=== PATIENT | male | born 1970 | race Hispanic/Latino ===

== ENCOUNTER 2023-09-01 20:18 | Emergency (ER) | payer BC ==
--- OUTSIDE RECORDS SUMMARY | 2023-09-01 20:21 | XMS REPORT | Continuity of Care Document ---
:1970 Author Organization [facility] t Address [address] [facility] [address] [place] [address] Care Team Providers Name Role Phone PCP, PATIENT DOES NOT HAVE A Primary Care Physician UnavailCLARA Hall Attending Clinician Unavailable DR ELSIE BRAVO Attending Clinician Unavailable KATHERINE FINLEY Attending Clinician Unavailable Katherine Finley MD Attending Clinician Doctor Unassigned, [place] Attending Clinician Unavailable Ford Attending Clinician Unavailable Herminio Attending Clinician Unavailable MARION RIVERA MD(DO NOT USE) Attending Clinician UnavailNANO Foreman Attending Clinician Unavailable AGUSTÍN VELÁZQUEZ Attending Clinician Unavailable SUE FAULKNER Attending Clinician Unavailable KAMARI DONOVAN Attending Clinician Unavailable EDER SUNSHINE Attending Clinician Unavailable DR ELSIE BRAVO Admitting Clinician Unavailable Ford Admitting Clinician Unavailable Herminio Admitting Clinician Unavailable Payers Payer Name Policy Type Policy Number Effective Date Expiration Date S eddy 0450 [id number] 1959 00:00:00 [facility] - [id number] 2021 00:00:00 OUT [id number] AETNA (POS) [id number] 2013 00:00:00 Problems Condition Condition Condition Status Onset Resolution Last Treating Co mments Source Name Details Category Date Date Treatment Clinician Date No known No known Disease Unive rs active active ity of problems problems [place] [facility] Allergies, Adverse Reactions, Alerts Allergy Allergy Status Severity Reaction(s) Onset Inactive Treating Comm ents Source Name Type Date Date Clinician Pen[place] DA Active Unknown [facility] ins 3-19 Medical 00:00: [place] 00 PENICILL DRUG Active High Hives 2021-11 Univers IN INGREDI 12-29 ity of 00:00: [place] 00 Medical Branch Penicill Propensi Active Hives 2021-11 Univer s in ty to 12-29 ity of adverse 00:00: [place] reaction 00 Medical s Branch NO KNOWN Drug Active Univers ALLERGIE Class ity of S [place] [facility] Social History Social Habit Start Date Stop Date Quantity Comments Source Exposure to 2022-10-19 2022-10-29 Not sure [facility] SARS-CoV-2 (event) 00:00:00 13:20:00 Medica l Branch Sex Assigned At [address] [facility] y of [place] 00:00:00 00:00:00 Medical Branch Smoking Status Start Date Stop Date Source Tobacco smoking consumption Univ [facility] Medical unknown Branch Medications Ordered Filled Start Stop Current Ordering Indication Dosage Frequency Signature Comments Components Source Medication Medication Date Date Medication? Clinician (SIG) Name Name triamcinolo 2021-11- No [id number] 20mg Univers ne 12-29 9107 ity of acetonide 22:00: 21:11 [place] (KENALOG) 00 :00 Medical injection Branch 20 mg triamcinolo 2021-11- No [id number] 20mg 20 mg, Univers ne 12-29 Intramuscu ity of acetonide 22:00: 21:11 [place]CE, [place] ([place] 00 :00 1 dose, On Medi jesus injection Wed Branch 20 mg 10/29/22 at 1600, Routine triamcinolo 2021-11- No [id number] 20mg Univers ne 12-29 9107 ity of acetonide 22:00: 21:11 [place] (KENALOG) 00 :00 Medical injection Branch 20 mg triamcinolo 2021-11- No [id number] 20mg 20 mg, Univers ne 12-29 9107 Intramuscu ity of acetonide 22:00: 21:11 [place]CE[place] (KE[place] 00 :00 1 dose, On Medi jesus injection Wed Branch 20 mg 10/29/22 at 1600, Routine triamcinolo 2021-11- No [id number] 20mg Univers ne 12-29 9107 ity of acetonide 22:00: 21:11 [place] (KENALOG) 00 :00 Medical injection Branch 20 mg triamcinolo 2021-11- No [id number] 20mg 20 mg, Univers ne 12-29 9107 Intramuscu ity of acetonide 22:00: 21:11 lar, ONCE, [place] (KE[place]LOG) 00 :00 1 dose, On Medi jesus injection Wed Branch 20 mg 10/29/22 at 1600, Routine triamcinolo 2021-11- No [id number] 20mg Univers ne 12-29 9107 ity of acetonide 22:00: 21:11 [place] (KENALOG) 00 :00 Medical injection Branch 20 mg triamcinolo 2021-11- No [id number] 20mg 20 mg, Univers ne 12-29 9107 Intramuscu ity of acetonide 22:00: 21:11 lar, ONCE, [place] (KE[place]LOG) 00 :00 1 dose, On Medi jesus injection Wed Branch 20 mg 10/29/22 at 1600, Routine triamcinolo 2021-11- No [id number] 20mg Univers ne 12-29 9107 ity of acetonide 22:00: 21:11 [place] (KENALOG) 00 :00 Medical injection Branch 20 mg triamcinolo 2021-11- No [id number] 20mg 20 mg, Univers ne 12-29 9107 Intramuscu ity of acetonide 22:00: 21:11 lar, ONCE, [place] (KE[place]LOG) 00 :00 1 dose, On Medi jesus injection Wed Branch 20 mg 10/29/22 at 1600, Routine Vital Signs Vital Name Observation Time Observation Value Comments Source Height 2023-02-15 14:56:00 165.1 CM Weight 2023-02-15 14:56:00 70.3 KG Systolic blood 2022-10-29 19:35:00 108 mm[Hg] Univer sity of pressure [facility] Diastolic blood 2022-10-29 19:35:00 69 mm[Hg] Unive rsity of pressure [facility] Heart rate 2022-10-29 19:35:00 92 /min [facility] Body temperature 2022-10-29 19:35:00 36.17 Sue Univ ersity of [facility] Body height 2022-10-29 19:35:00 167.6 cm [facility] Body weight 2022-10-29 19:35:00 67.087 kg [facility] BMI 2022-10-29 19:35:00 23.87 kg/m2 [facility] Procedures Procedure Date / Time Performed Performing Clinician [facility] e CONSENT/REFUSAL FOR 2022-10-29 19:21:41 Doctor Unassigned, No Un [facility] DIAGNOSIS AND Name [facility] Branch TREATMENT Encounters Start End Encounter Admission Attending Care Care Encounter Source Date/Time Date/Time Type Type Clinicians Facility Department ID 2023-07-25 2023-07-25 Emergency ER RACHAEL, [facility] [id number] [place] 19:51:00 22:00:00 CLARA -[id number] suresh [facility] 2023-02-15 2023-02-15 Outpatient E [facility] [id number] [facility] 14:40:00 16:24:00 ELSIE Wolfe [facility] 2022-12-24 2022-12-24 Outpatient R KRYSTYNA [facility] [id number] Univers 13:50:00 13:50:00 KATHERINE ferrer [facility] 2022-10-29 2022-10-29 Office Krystyna [facility] [id number] Univers 13:30:00 15:04:44 Visit Katherine DIAS [id number] ity of [facility] [id number] [facility] AT [id number] Md sunil MALCOLM [address] [place] [address] 2022-10-29 2022-10-29 Outpatient Dinorah FINLEY, [facility] [id number] Univers 13:30:00 15:04:44 KATHERINE ferrer [facility] 2022-10-29 2022-10-29 Orders Doctor KATHERINE [id number] Univers 00:00:00 00:00:00 Only Unassigned, DIANDRA [id number] ity [facility] [id number] [facility] [id number] [address] 2022-10-09 2022-10-09 Outpatient cMcPaulald MMG [facility] [id number] [place] 00:00:00 00:00:00 [facility] 2021-12-26 2021-12-26 Outpatient Shanika HUGO [facility] [id number] [place] 09:54:00 09:54:00 dquist da [facility] Program 2021-06-18 2021-06-18 Emergency ER NICOLE, [facility] [id number] [place] 03:11:00 06:42:00 MARION -[id number] Critical access hospital 2018-12-03 2018-12-03 Emergency ER OWO, TOKS [facility] [id number] [place] 12:18:00 13:34:00 -[id number] Critical access hospital 2018-04-06 2018-04-07 Emergency ER OWO, TOKS [facility] [id number] [place] 22:20:00 00:04:00 -[id number] Critical access hospital 2016-10-06 2016-10-06 Emergency ER BA, AGUSTÍN [facility] [id number] [place] 01:46:00 03:58:00 -[id number] Critical access hospital 2015-10-19 2015-10-19 Emergency ER SAEMI, [facility] [id number] [place] 16:28:00 19:01:00 SUE -[id number] Critical access hospital 2015-01-04 2015-01-04 Emergency ER DONOVAN, [facility] [id number] [place] 12:51:00 15:48:00 WAS -[id number] Critical access hospital 2014-12-13 2014-12-13 Emergency ER [facility], [facility] [id number] [place] 16:13:00 16:50:00 [facility] -[id number] Critical access hospital 2014-08-29 2014-08-29 Emergency ER [facility], [facility] [id number] [place] 18:15:00 18:46:00 [facility] -[id number] Critical access hospital Results This patient has no known results.
--- NOTE | 2023-09-01 21:42 | ER ---
Nurse's Notes [facility] Name: Emmanuel Adam Age: 53 yrs Sex: Male : 1970 Arrival Date: 09/01/2023 Time: 20:18 Bed 10 Private MD: Diagnosis: Contusion of right foot;Other sprain of right foot Presentation: 09/01 20:39 Chief complaint: Patient states: right foot pain of 8,onset 1 hours ago. Patient stated pf1 twisted right foot after stepping into a hole. Coronavirus screen: Vaccine status: Patient reports receiving the 2nd dose of the covid vaccine. 4 doses pfizer Client denies travel out of the [place] in the last 14 days. At this time, the client does not indicate any symptoms associated with coronavirus-19. Ebola Screen: Patient negative for fever greater than or equal to 101.5 degrees Fahrenheit, and additional compatible Ebola Virus Disease symptoms. Initial Sepsis Screen: Does the patient meet any 2 criteria? No. Patient's initial sepsis screen is negative. Does the patient have a suspected source of infection? No. Patient's initial sepsis screen is negative. Risk Assessment: Do you want to hurt yourself or someone else? Patient reports no desire to harm self or others. 20:39 Method Of Arrival: Wheelchair pf1 20:39 Acuity: KATY 4 pf1 Historical: - Allergies: 20:41 PENICILLINS; pf1 - PMHx: 20:41 None; pf1 - PSHx: 20:41 None; pf1 - Immunization history:: Adult Immunizations up to date, Last tetanus immunization: < 5 years ago Flu vaccine is not up to date. - Social history:: Smoking status: Patient denies any tobacco usage or history of. Patient/guardian denies using alcohol, street drugs. Screenin:45 [facility] ED Fall Risk Assessment (Adult) History of falling in the last 3 months, pf1 including since admission No falls in past 3 months (0 pts) Confusion or Disorientation No (0 pts) Intoxicated or Sedated No (0 pts) Impaired Gait Yes (1 pt) Mobility Assist Device Used No (0 pt) Altered Elimination No (0 pt) Score/Fall Risk Level 0 - 2 = Low Risk Oriented to surroundings, Maintained a safe environment, Educated pt \T\ family on fall prevention, incl call for assistance when getting out of bed, Assessed \T\ reinforced patient's understanding of fall precautions, Provided non-skid footwear, Hourly rounding (assess needs \T\ fall precautionary measures) done, Used ambulatory aids as needed (educated on \T\ assisted with), Used gait belt as appropriate. 20:45 Abuse screen: Denies threats or abuse. Nutritional screening: No deficits noted. pf1 Tuberculosis screening: No symptoms or risk factors identified. Assessment: 20:45 General: Appears in no apparent distress. comfortable, well groomed, well developed, pf1 Behavior is calm, cooperative, appropriate for age, quiet. 20:45 Pain: Complains of pain in right foot Pain currently is 8 out of 10 on a pain scale. pf1 Neuro: No deficits noted. Level of Consciousness is awake, alert, obeys commands, Oriented to person, place, time, situation. Cardiovascular: No deficits noted. Capillary refill < 3 seconds Patient's skin is warm and dry. Respiratory: No deficits noted. Airway is patent Respiratory effort is even, unlabored, Respiratory pattern is regular, symmetrical. GI: No deficits noted. No signs and/or symptoms were reported involving the gastrointestinal system. : No deficits noted. No signs and/or symptoms were reported regarding the genitourinary system. EENT: No deficits noted. No signs and/or symptoms were reported regarding the EENT system. Derm: No deficits noted. No signs and/or symptoms reported regarding the dermatologic system. Musculoskeletal: Reports pain in right foot. 21:45 Reassessment: Patient appears in no apparent distress at this time. Patient and/or pf1 family updated on plan of care and expected duration. Pain level reassessed. Patient is alert, oriented x 3, equal unlabored respirations, skin warm/dry/pink. Patient states symptoms have improved. Vital Signs: 20:39 BP 108 / 70; Pulse 89; Resp 16; Temp 98.2; Pulse Ox 98% on R/A; Weight 61.23 kg; Height pf1 5 ft. 6 in. ; Pain 8/10; 21:45 BP 110 / 69; Pulse 82; Resp 16; Pulse Ox 100% on R/A; Pain 5/10; pf1 20:39 Body Mass Index 21.79 (61.23 kg, 167.64 cm) pf1 20:39 Pain Scale: Adult pf1 21:45 Pain Scale: Adult pf1 ED Course: 20:22 Patient arrived in ED. [email or web address] 20:25 Debo Mcqueen MD is Attending Physician. sp3 20:41 Triage completed. pf1 20:45 Patient has correct armband on for positive identification. Bed in low position. Call pf1 light in reach. 20:45 Arm band placed on right wrist. pf1 21:41 Foot Right 3 View XRAY In Process Unspecified. EDMS 21:41 Roderick Guardado MD is Referral Physician. sp3 21:55 Crutch training done. Ortho shoe applied to right foot. pf1 21:55 Provided Education on: prescription. pf1 21:57 No provider procedures requiring assistance completed. Patient did not have IV access pf1 during this emergency room visit. Administered Medications: No medications were administered Medication: 21:59 VIS not applicable for this client. pf1 Outcome: 21:42 Discharge ordered by MD. sp3 21:59 Discharged to home ambulatory, with crutches, pf1 21:59 Condition: improved 21:59 Discharge instructions given to patient, Instructed on discharge instructions, follow up and referral plans. Demonstrated understanding of instructions, follow-up care, medications, Prescriptions given X 1, 21:59 Patient left the ED. pf1 Signatures: Dispatcher [employer] EDWI Debo Mcqueen MD MD sp3 Alessandra Velasquez [email or web address] Soila Luna, RN RN pf1
--- NOTE | 2023-09-01 21:42 | EDPHYS ---
Physician Documentation [facility] Name: Emmanuel Adam Age: 53 yrs Sex: Male : 1970 Arrival Date: 09/01/2023 Time: 20:18 Bed 10 Private MD: ED Physician Debo Mcqueen HPI: 09/01 20:56 This 53 yrs old Male presents to ER via Wheelchair with complaints of Foot sp3 Injury. 20:56 53-year-old male with no significant past medical history presents to the ED with right sp3 lateral foot pain that occurred secondary to trauma when he stepped in a hole while walking approximately 2 hours ago. No prior injury or surgical intervention to that foot in the past. He denies any other injury including to the ankle, proximal knee hip pelvis or any other joint. No medical etiology for the traumatic misfortune. He currently denies any other symptoms including headache, neck pain, chest pain, shortness of breath, back pain, other joint pain rash or any neurological symptoms at this time. Remainder of ROS is negative.. Historical: - Allergies: 20:41 PENICILLINS; pf1 - PMHx: 20:41 None; pf1 - PSHx: 20:41 None; pf1 - Immunization history:: Adult Immunizations up to date, Last tetanus immunization: < 5 years ago Flu vaccine is not up to date. - Social history:: Smoking status: Patient denies any tobacco usage or history of. Patient/guardian denies using alcohol, street drugs. ROS: 20:58 Constitutional: Negative for fever, chills, and weight loss, Eyes: Negative for injury, sp3 pain, redness, and discharge, ENT: Negative for injury, pain, and discharge, Neck: Negative for injury, pain, and swelling, Cardiovascular: Negative for chest pain, palpitations, and edema, Respiratory: Negative for shortness of breath, cough, wheezing, and pleuritic chest pain, Abdomen/GI: Negative for abdominal pain, nausea, vomiting, diarrhea, and constipation, Back: Negative for injury and pain, Skin: Negative for injury, rash, and discoloration, Neuro: Negative for headache, weakness, numbness, tingling, and seizure, Psych: Negative for depression, anxiety, suicide ideation, homicidal ideation, and hallucinations, Allergy/Immunology: Negative for hives, rash, and allergies, Endocrine: Negative for neck swelling, polydipsia, polyuria, polyphagia, and marked weight changes, Hematologic/Lymphatic: Negative for swollen nodes, abnormal bleeding, and unusual bruising, 20:58 All other systems are negative, Exam: 20:58 Constitutional: This is a well developed, well nourished patient who is awake, alert, sp3 and in no acute distress. Head/Face: Normocephalic, atraumatic. Eyes: Pupils equal round and reactive to light, extra-ocular motions intact. Lids and lashes normal. Conjunctiva and sclera are non-icteric and not injected. Cornea within normal limits. Periorbital areas with no swelling, redness, or edema. Neck: Trachea midline, no thyromegaly or masses palpated, and no cervical lymphadenopathy. Supple, full range of motion without nuchal rigidity, or vertebral point tenderness. No Meningismus. Chest/axilla: Normal chest wall appearance and motion. Nontender with no deformity. No lesions are appreciated. Cardiovascular: Regular rate and rhythm with a normal S1 and S2. No gallops, murmurs, or rubs. Normal PMI, no JVD. No pulse deficits. Respiratory: Lungs have equal breath sounds bilaterally, clear to auscultation and percussion. No rales, rhonchi or wheezes noted. No increased work of breathing, no retractions or nasal flaring. Abdomen/GI: Soft, non-tender, with normal bowel sounds. No distension or tympany. No guarding or rebound. No evidence of tenderness throughout. Back: No spinal tenderness. No costovertebral tenderness. Full range of motion. Skin: Warm, dry with normal turgor. Normal color with no rashes, no lesions, and no evidence of cellulitis. Neuro: Awake and alert, GCS 15, oriented to person, place, time, and situation. Cranial nerves II-XII grossly intact. Motor strength 5/5 in all extremities. Sensory grossly intact. Cerebellar exam normal. Normal gait. Psych: Awake, alert, with orientation to person, place and time. Behavior, mood, and affect are within normal limits. 20:58 Musculoskeletal/extremity: Lateral swelling and pain to the right foot distal to the ankle. Distal neurovascular exam is normal including cap refill.. Vital Signs: 20:39 BP 108 / 70; Pulse 89; Resp 16; Temp 98.2; Pulse Ox 98% on R/A; Weight 61.23 kg; Height pf1 5 ft. 6 in. ; Pain 8/10; 21:45 BP 110 / 69; Pulse 82; Resp 16; Pulse Ox 100% on R/A; Pain 5/10; pf1 20:39 Body Mass Index 21.79 (61.23 kg, 167.64 cm) pf1 20:39 Pain Scale: Adult pf1 21:45 Pain Scale: Adult pf1 MDM: 20:46 Patient medically screened. sp3 20:59 Data reviewed: vital signs, nurses notes, radiologic studies. ED course: . sp3 21:01 ED course: 53-year-old male with right foot injury. X-rays pending. Differential sp3 diagnosis includes contusion versus strain versus fracture. Disposition based on x-ray with likely discharge home. Follow-up with orthopedics. NSAIDs Rx as needed.. 21:40 ED course: Foot x-ray demonstrates no fracture on my read. We will discharge him home sp3 on boot and crutches for as needed partial weightbearing.. 09/01 20:50 Order name: Foot Right 3 View XRAY sp3 09/01 21:41 Order name: Crutch Training; Complete Time: 21:53 sp3 09/01 21:41 Order name: Misc. Order: ortho shoe - right foot; Complete Time: 21:53 sp3 Administered Medications: No medications were administered Disposition Summary: 09/01/23 21:42 Discharge Ordered Notes: Location: Home sp3 Condition: Stable sp3 Diagnosis - Contusion of right foot sp3 - Other sprain of right foot sp3 Followup: sp3 - With: Roderick Guardado MD - When: Upon discharge from the Emergency Department - Reason: Recheck today's complaints Discharge Instructions: - Discharge Summary Sheet sp3 - Foot Sprain sp3 Forms: - Medication Reconciliation Form sp3 - Thank You Letter sp3 - Antibiotic Education sp3 - Prescription Opioid Use sp3 - Patient Portal Instructions sp3 - Leadership Thank You Letter sp3 Prescriptions: - Diclofenac Sodium 75 mg Oral Tablet Sustained Release - take 1 tablet ORAL route 2 times per day; 30 tablet; Refills: 0, Product sp3 Selection Permitted Signatures: Dispatcher [employer] EDMS Debo Mcqueen MD MD sp3 Soila Luna, NAYELI RN pf1
--- NOTE | 2023-09-01 21:47 | RAD REPORT ---
EXAM DESCRIPTION: RAD - Foot Right 3 View - 09/01/2023 9:39 pm CLINICAL HISTORY: SMASH INJURY Twisting injury. COMPARISON: No comparisons FINDINGS: No acute fracture or dislocation is seen.
[2023-09-01 22:12] VITALS: TEMP 98.2
[2023-09-01 22:13] VITALS: BP 110/69; O2SAT 100
== END 2023-09-01 21:59 | disposition home or self-care (01) ==
LOC: ER 20:18
DX: S93.691A Other sprain of right foot, initial encounter (principal)
CPT/HCPCS: 99283

== ENCOUNTER 2023-10-08 06:07 | Emergency (ER) | payer BC ==
--- OUTSIDE RECORDS SUMMARY | 2023-10-08 06:10 | XMS REPORT | Continuity of Care Document ---
:[address] [facility] t Address [address] [facility] [address] [place] [address] Care Team Providers Name Role Phone PCP, PATIENT DOES NOT HAVE A Primary Care Physician UnavailCLARA Hall Attending Clinician Unavailable DR ELSIE BRAVO Attending Clinician Unavailable KATHERINE FINLEY Attending Clinician Unavailable Katherine Finley MD Attending Clinician Doctor Unassigned, [place] Attending Clinician Unavailable [place] Attending Clinician Unavailable [...] Effective Date Expiration Date S eddy 0450 [id number] 1959 00:00:00 [facility] - [id number] 2021 00:00:00 OUT [place] [id number] [place]ET[place] (POS) [id number] 2013 00:00:00 Problems Condition Condition Condition Status Onset Resolution Last Treating Co mments Source Name Details Category Date Date Treatment Clinician Date No known No known Disease Unive rs active active ity of problems problems [place] [facility] Allergies, Adverse Reactions, Alerts Allergy Allergy Status Severity Reaction(s) Onset Inactive Treating Comm ents Source Name Type Date Date Clinician Penic[place] DA Active Unknown [facility] ins 3-19 Medical 00:00: [place] 00 PENICILL DRUG Active High Hives 2021-11 Univers IN INGREDI 12-29 ity of 00:00: [place] 00 Medical Branch Penicill Propensi Active Hives 2021-11 Univer s in ty to 12-29 ity of adverse 00:00: [place] reaction 00 Medical s Branch NO KNOWN Drug Active Univers ALLERGIE Class ity of S [place] [facility] Social History Social Habit Start Date Stop Date Quantity Comments Source Exposure to 2022-10-19 2022-10-29 Not sure [facility] SARS-CoV-2 (event) 00:00:00 13:20:00 Medica l Branch Sex Assigned At [birth year] [facility] y of [place] 00:00:00 00:00:00 Medical Branch Smoking Status Start Date Stop Date Source Tobacco smoking consumption Univ [facility] Medical unknown Branch Medications Ordered Filled Start Stop Current Ordering Indication Dosage Frequency Signature Comments Components Source Medication Medication Date Date Medication? Clinician (SIG) Name Name triamcinolo 2021-11- No [id number] 20mg Univers ne 12-29 9107 ity of acetonide 22:00: 21:11 [place] (KENALOG) 00 :00 Medical injection Branch 20 mg triamcinolo 2021-11- No [id number] 20mg 20 mg, Univers ne 12-29 Intramuscu ity of acetonide 22:00: 21:11 [place] ONCE, [place] 00 :00 1 dose, On Medi jesus injection Wed Branch 20 mg 10/29/22 at 1600, Routine triamcinolo 2021-11- No [id number] 20mg Univers ne 12-29 9107 ity of acetonide 22:00: 21:11 [place] (KENALOG) 00 :00 Medical injection Branch 20 mg triamcinolo 2021-11- No [id number] 20mg 20 mg, Univers ne 12-29 9107 Intramuscu ity of acetonide 22:00: 21:11 [place]CE, [place] ([place] 00 :00 1 dose, On Medi jesus injection Wed Branch 20 mg 10/29/22 at 1600, Routine triamcinolo 2021-11- No [id number] 20mg Univers ne 12-29 9107 ity of acetonide 22:00: 21:11 [place] (KENALOG) 00 :00 Medical injection Branch 20 mg triamcinolo 2021-11- No [id number] 20mg 20 mg, Univers ne 12-29 9107 Intramuscu ity of acetonide 22:00: 21:11 lar, ONCE, [place] (KE[place]LOG) 00 :00 1 dose, On Medi jesus injection Wed Branch 20 mg 10/29/22 at 1600, Routine triamcinolo 2021-11- No [id number] 20mg Univers ne 12-29 9107 ity of acetonide 22:00: 21:11 [place] (KENALOG) 00 :00 Medical injection Branch 20 mg triamcinolo 2021-11- No [id number] 20mg 20 mg, Univers ne 12-29 9107 Intramuscu ity of acetonide 22:00: 21:11 lar, ONCE, [place] (KE[place]LOG) 00 :00 1 dose, On Medi jesus injection Wed Branch 20 mg 10/29/22 at 1600, Routine triamcinolo 2021-11- No [id number] 20mg Univers ne 12-29 9107 ity of acetonide 22:00: 21:11 [place] (KENALOG) 00 :00 Medical injection Branch 20 mg triamcinolo 2021-11- No [id number] 20mg 20 mg, Univers ne 12-29 9107 [...] 19:35:00 108 mm[Hg] Univer sity of pressure [facility] Diastolic blood 2022-10-29 19:35:00 69 mm[Hg] Unive rsity of pressure [facility] Heart rate 2022-10-29 19:35:00 92 /min [facility] Body temperature 2022-10-29 19:35:00 36.17 Sue Univ ersity of [facility] Body height 2022-10-29 19:35:00 167.6 cm [facility] Body weight 2022-10-29 19:35:00 67.087 kg [facility] BMI 2022-10-29 19:35:00 23.87 kg/m2 [facility] Procedures Procedure Date / Time Performed Performing Clinician [facility] e CONSENT/REFUSAL FOR 2022-10-29 19:21:41 Doctor Unassigned, No Un [facility] DIAGNOSIS AND Name [facility] Branch TREATMENT Encounters Start End Encounter Admission Attending Care Care Encounter Source Date/Time Date/Time Type Type Clinicians Facility Department ID 2023-07-25 2023-07-25 Emergency ER RACHAEL, [facility] [id number] [place] 19:51:00 22:00:00 CLARA -[id number] suresh [facility] 2023-02-15 2023-02-15 Outpatient E [facility] [id number] [place] 14:40:00 16:24:00 ELSIE Wolfe [facility] 2022-12-24 2022-12-24 Outpatient R KRYSTYNA [facility] [id number] Univers 13:50:00 13:50:00 KATHERINE ferrer [facility] 2022-10-29 2022-10-29 Office Krystyna [facility] [id number] Univers 13:30:00 15:04:44 Visit Katherine DIAS [id number] ity of [facility] [id number] [facility] AT [id number] Ia sunil MALCOLM [address] [place] [address] 2022-10-29 2022-10-29 Outpatient Dinorah FINLEY, [facility] [id number] Univers 13:30:00 15:04:44 KATHERINE ferrer [facility] 2022-10-29 2022-10-29 Orders Doctor KATHERINE [id number] Univers 00:00:00 00:00:00 Only Unassigned, DIANDRA [id number] ity [facility] [id number] [facility] [id number] [address] 2022-10-09 2022-10-09 Outpatient cMcPaulald [facility]G [facility] [id number] [place] 00:00:00 00:00:00 [id number] 2021-12-26 2021-12-26 Outpatient Shanika HUGO [facility] [id number] [place] 09:54:00 09:54:00 dquist da [facility] Program 2021-06-18 2021-06-18 Emergency ER NICOLE, [facility] [id number] [place] 03:11:00 06:42:00 MARION -[id number] [facility] 2018-12-03 2018-12-03 Emergency ER OWO, TOKS [facility] [id number] [place] 12:18:00 13:34:00 -[id number] [facility] 2018-04-06 2018-04-07 Emergency ER OWO, TOKS [facility] [id number] [place] 22:20:00 00:04:00 -[id number] [facility] 2016-10-06 2016-10-06 Emergency ER BA, AGUSTÍN [facility] [id number] [place] 01:46:00 03:58:00 -[id number] [facility] 2015-10-19 2015-10-19 Emergency ER SAEMI, [facility] [id number] [place] 16:28:00 19:01:00 SUE -[id number] [facility] 2015-01-04 2015-01-04 Emergency ER DONOVAN, [facility] [id number] [place] 12:51:00 15:48:00 WAS -[id number] [facility] 2014-12-13 2014-12-[address] [facility], [facility] [id number] [place] 16:13:00 16:50:00 [facility] -[id number] [facility] 2014-08-29 2014-08-[address] [facility], [facility] [id number] [place] 18:15:00 18:46:00 [facility] -[id number] [facility] Results This patient has no known results.
--- NOTE | 2023-10-08 06:59 | EDPHYS ---
Physician Documentation [facility] Name: Emmanuel Adam Age: 53 yrs Sex: Male : 1970 Arrival Date: 10/08/2023 Time: 06:07 Bed 13 Private MD: ALEJANDRO Physician Ion Hill HPI: 10/08 06:51 This 53 yrs old Male presents to ER via Ambulatory with complaints of THROAT basilio PAIN. 06:51 The patient presents with sore throat. The patient describes throat pain as constant. basilio Onset: The symptoms/episode began/occurred 2 day(s) ago. Severity of symptoms: At their worst the symptoms were mild, in the emergency department the symptoms are unchanged. Modifying factors: The symptoms are alleviated by nothing, the symptoms are aggravated by nothing. Associated signs and symptoms: The patient has no apparent associated signs or symptoms. The patient has experienced similar episodes in the past, a few times. Historical: - Allergies: 06:37 PENICILLINS; as6 - PMHx: 06:37 None; as6 - PSHx: 06:37 None; as6 - Immunization history:: Adult Immunizations up to date. - Social history:: Smoking status: Patient denies any tobacco usage or history of. ROS: 06:54 Constitutional: Negative for fever, chills, and weight loss, Eyes: Negative for injury, basilio pain, redness, and discharge, Neck: Negative for injury, pain, and swelling, Cardiovascular: Negative for chest pain, palpitations, and edema, Respiratory: Negative for shortness of breath, cough, wheezing, and pleuritic chest pain, Abdomen/GI: Negative for abdominal pain, nausea, vomiting, diarrhea, and constipation, Back: Negative for injury and pain, : Negative for injury, bleeding, discharge, and swelling, MS/Extremity: Negative for injury and deformity, Skin: Negative for injury, rash, and discoloration, Neuro: Negative for headache, weakness, numbness, tingling, and seizure, Psych: Negative for depression, anxiety, suicide ideation, homicidal ideation, and hallucinations, Allergy/Immunology: Negative for hives, rash, and allergies, Endocrine: Negative for neck swelling, polydipsia, polyuria, polyphagia, and marked weight changes, Hematologic/Lymphatic: Negative for swollen nodes, abnormal bleeding, and unusual bruising, 06:54 ENT: Positive for sore throat, Exam: 06:54 Constitutional: This is a well developed, well nourished patient who is awake, alert, basilio and in no acute distress. Head/Face: Normocephalic, atraumatic. Eyes: Pupils equal round and reactive to light, extra-ocular motions intact. Lids and lashes normal. Conjunctiva and sclera are non-icteric and not injected. Cornea within normal limits. Periorbital areas with no swelling, redness, or edema. Neck: Trachea midline, no thyromegaly or masses palpated, and no cervical lymphadenopathy. Supple, full range of motion without nuchal rigidity, or vertebral point tenderness. No Meningismus. Chest/axilla: Normal chest wall appearance and motion. Nontender with no deformity. No lesions are appreciated. Cardiovascular: Regular rate and rhythm with a normal S1 and S2. No gallops, murmurs, or rubs. Normal PMI, no JVD. No pulse deficits. Respiratory: Lungs have equal breath sounds bilaterally, clear to auscultation and percussion. No rales, rhonchi or wheezes noted. No increased work of breathing, no retractions or nasal flaring. Abdomen/GI: Soft, non-tender, with normal bowel sounds. No distension or tympany. No guarding or rebound. No evidence of tenderness throughout. Back: No spinal tenderness. No costovertebral tenderness. Full range of motion. Male : Normal genitalia with no discharge or lesions. Skin: Warm, dry with normal turgor. Normal color with no rashes, no lesions, and no evidence of cellulitis. MS/ Extremity: Pulses equal, no cyanosis. Neurovascular intact. Full, normal range of motion. Neuro: Awake and alert, GCS 15, oriented to person, place, time, and situation. Cranial nerves II-XII grossly intact. Motor strength 5/5 in all extremities. Sensory grossly intact. Cerebellar exam normal. Normal gait. Psych: Awake, alert, with orientation to person, place and time. Behavior, mood, and affect are within normal limits. 06:54 ENT: Posterior pharynx: Tonsils: bilaterally enlarged, with erythema, Uvula: normal, midline, non-edematous, erythema, swelling, that is mild, erythema, that is mild, exudate, is not appreciated, peritonsillar mass, is not appreciated, pooling of secretions, is not appreciated, Vital Signs: 06:31 BP 129 / 87; Pulse 109; Resp 18 S; Temp 98.8(O); Pulse Ox 100% on R/A; Weight 58.97 kg as6 (R); Height 5 ft. 6 in. (R); Pain 10/10; 06:31 Body Mass Index 20.98 (58.97 kg, 167.64 cm) as6 06:31 Pain Scale: Adult as6 MDM: 06:33 Patient medically screened. basilio 06:55 Differential diagnosis: Allergic rhinitis, echovirus infection, epiglottitis, basilio gingivostomatitis, group A strep tonsillitis, influenza, laryngitis, lymphoma, peritonsillar abscess pharyngitis. Data reviewed: vital signs, nurses notes. Consideration of Admission/Observation Escalation of care including admission/observation considered. I considered the following discharge prescriptions or medication management in the emergency department Medications were administered in the Emergency Department. See MAR. Test considered but Not performed: Labs: no labs. Care significantly affected by the following chronic conditions: none, non smoker. Counseling: I had a detailed discussion with the patient and/or guardian regarding the historical points, exam findings, and any diagnostic results supporting the discharge/admit diagnosis, the need for outpatient follow up, for definitive care, an ENT specialist, a family practitioner. 10/08 06:50 Order name: PO challenge; Complete Time: 06:54 basilio Administered Medications: 06:54 Drug: AZITHromycin PO 500 mg PO once Route: PO; jb4 08:00 Follow up: Response: No adverse reaction iw Disposition Summary: 10/08/23 06:58 Discharge Ordered Notes: Location: Home basilio Problem: new basilio Symptoms: have improved basilio Condition: Stable basilio Diagnosis - Gastro-esophageal reflux disease with esophagitis basilio - Acute pharyngitis, unspecified basilio Followup: basilio - With: Private Physician - When: 2 - 3 days - Reason: Recheck today's complaints, Continuance of care, Re-evaluation by your physician Followup: basilio - With: Carmella Shaver MD - When: 2 - 3 days - Reason: Recheck today's complaints, Continuance of care, Re-evaluation by your physician Discharge Instructions: - Discharge Summary Sheet basilio - Esophagitis basilio - Gastroesophageal Reflux Disease, Adult basilio - Pharyngitis basilio - Sore Throat basilio - Pharyngitis, [id number] [facility] Forms: - Medication Reconciliation Form [facility] - Thank You Letter basilio - Antibiotic Education basilio - Prescription Opioid Use basilio - Patient Portal Instructions [facility] - Leadership Thank You Letter basilio Prescriptions: - Protonix 40 mg Oral Tablet - take 1 tablet ORAL route once daily; 30 tablet; Refills: 0, Product Selection [facility] Permitted - Jessy-D 12 Hour 60-120 mg Oral Tablet Sustained Release 12 hr - take 1 tablet ORAL route every 12 hours As needed; 20 tablet; Refills: 0, [facility] Product Selection Permitted - Zithromax 500 mg Oral Tablet - take 1 tablet ORAL route once daily for 5 days; 5 tablet; Refills: 0, Product [facility] Selection Permitted Signatures: Ion Hill MD MD cha Bryson, James RN RN jb4 Sanya Norman RN RN as6 Maddy Murphy RN iw
--- NOTE | 2023-10-08 06:59 | ER ---
Nurse's Notes [facility] Name: Emmanuel Adam Age: 53 yrs Sex: Male : 1970 Arrival Date: 10/08/2023 Time: 06:07 Bed 13 Private MD: Diagnosis: Gastro-esophageal reflux disease with esophagitis;Acute pharyngitis, unspecified Presentation: 10/08 06:38 Chief complaint: Patient states: "for the past week and a half my throat has been as6 really sore and it hurts to swallow and eat food". Coronavirus screen: At this time, the client does not indicate any symptoms associated with coronavirus-19. Ebola Screen: No symptoms or risks identified at this time. Initial Sepsis Screen: Does the patient meet any 2 criteria? No. Patient's initial sepsis screen is negative. Does the patient have a suspected source of infection? No. Patient's initial sepsis screen is negative. Risk Assessment: Do you want to hurt yourself or someone else? Patient reports no desire to harm self or others. Onset of symptoms was September 28, 2023. 06:38 Acuity: KATY 3 as6 06:38 Method Of Arrival: Ambulatory as6 Historical: - Allergies: 06:37 PENICILLINS; as6 - PMHx: 06:37 None; as6 - PSHx: 06:37 None; as6 - Immunization history:: Adult Immunizations up to date. - Social history:: Smoking status: Patient denies any tobacco usage or history of. Screenin:56 [facility] ED Fall Risk Assessment (Adult) History of falling in the last 3 months, jb4 including since admission No falls in past 3 months (0 pts) Confusion or Disorientation No (0 pts) Score/Fall Risk Level 0 - 2 = Low Risk Oriented to surroundings, Maintained a safe environment. Abuse screen: Denies threats or abuse. Nutritional screening: No deficits noted. Tuberculosis screening: No symptoms or risk factors identified. Assessment: 06:54 General: Appears in no apparent distress. uncomfortable, Behavior is calm, cooperative, jb4 appropriate for age. Pain: Complains of pain in throat Pain does not radiate. Pain currently is 10 out of 10 on a pain scale. Quality of pain is described as scraping. Neuro: Level of Consciousness is awake, alert, obeys commands, Oriented to person, place, time, situation. Cardiovascular: Patient's skin is warm and dry. Respiratory: Airway is patent Respiratory effort is even, unlabored, Respiratory pattern is regular, symmetrical. GI: No signs and/or symptoms were reported involving the gastrointestinal system. : No signs and/or symptoms were reported regarding the genitourinary system. EENT: Throat is clear is reddened with gag reflex present. Derm: Skin is intact, Skin is pink, warm \\T\\ dry. Musculoskeletal: Circulation, motion, and sensation intact. Range of motion: intact in all extremities. Vital Signs: 06:31 BP 129 / 87; Pulse 109; Resp 18 S; Temp 98.8(O); Pulse Ox 100% on R/A; Weight 58.97 kg as6 (R); Height 5 ft. 6 in. (R); Pain 10/10; 06:31 Body Mass Index 20.98 (58.97 kg, 167.64 cm) as6 06:31 Pain Scale: Adult as6 ED Course: 06:09 Patient arrived in ED. ag3 06:31 Arm band placed on. as6 06:33 Ion Hill MD is Attending Physician. basilio 06:41 Triage completed. as6 06:56 Patient has correct armband on for positive identification. Bed in low position. Call jb4 light in reach. Side rails up X 1. 06:57 Carmella Shaver MD is Referral Physician. basilio 07:28 Maddy Murphy, RN is Primary Nurse. iw 07:28 No provider procedures requiring assistance completed. Patient did not have IV access iw during this emergency room visit. Administered Medications: 06:54 Drug: AZITHromycin PO 500 mg PO once Route: PO; jb4 08:00 Follow up: Response: No adverse reaction iw Medication: 07:28 VIS not applicable for this client. iw Outcome: 06:58 Discharge ordered by . basilio 07:28 Discharged to home ambulatory, iw 07:28 Condition: good 07:28 Discharge instructions given to patient, Instructed on discharge instructions, follow up and referral plans. medication usage, Demonstrated understanding of instructions, follow-up care, medications, Prescriptions given X 3, 07:29 Patient left the ED. iw Signatures: Ion Hill MD MD cha Williams, Irene, RN RN Reymundo Grande RN RN 4 Willow White ag3 Sanya Norman, RN RN as6
[2023-10-08] MEDS ORDERED: AZITHROMYCIN 250 MG TAB ONE (07:05)
[2023-10-08 07:44] VITALS: BP 129/87; TEMP 98.8; O2SAT 100
== END 2023-10-08 07:29 | disposition home or self-care (01) ==
LOC: ER 06:07
DX: K21.00 Gastro-esophageal reflux disease with esophagitis, without bleeding (principal); Z88.0 Allergy status to penicillin
CPT/HCPCS: 99283

== ENCOUNTER 2023-11-06 07:24 | Day surgery (SDC) | payer BC ==
[2023-11-04 14:38] LABS: Potassium 4.6 mEq/L (3.5-5.1)
[2023-11-06] MEDS ORDERED: Ringers Lactate 1,000 ML IV ONE (07:55)
[2023-11-06 19:39] VITALS: O2SAT 100
[2023-11-06 19:46] VITALS: BP 105/70; TEMP 97.9
--- NOTE | 2023-11-10 14:07 | EKG ---
Test Date: 2023-11-04 Test Time: 15:05:54 Cost Control Supervisor: EL MEASUREMENT RESULTS: Intervals: Rate: 87 TN: 162 QRSD: 86 QT: 336 QTc: 404 [place]: P: 39 TN: 162 QRS: 100 T: 49 INTERPRETIVE STATEMENTS: Normal sinus rhythm Rightward axis Borderline ECG No previous ECG available for comparison Electronically Signed On 11-10-23 13:47:27 [employer] by Ryan Veliz
== END 2023-11-06 12:28 | disposition home or self-care (01) ==
LOC: OR 07:24
PROVIDERS: ATTEND Surgery
PROC: 0DB48ZX Excision of Esophagogastric Junction, Via Natural or Artificial Opening Endoscopic, Diagnostic (ICD-10-PCS; 2023-11-06)
PROC: 0DB18ZX Excision of Upper Esophagus, Via Natural or Artificial Opening Endoscopic, Diagnostic (ICD-10-PCS; 2023-11-06)
PROC: 0DB28ZX Excision of Middle Esophagus, Via Natural or Artificial Opening Endoscopic, Diagnostic (ICD-10-PCS; 2023-11-06)
PROC: 0DB38ZX Excision of Lower Esophagus, Via Natural or Artificial Opening Endoscopic, Diagnostic (ICD-10-PCS; 2023-11-06)
PROC: 0DBH8ZX Excision of Cecum, Via Natural or Artificial Opening Endoscopic, Diagnostic (ICD-10-PCS; principal; 2023-11-06 09:30)
PROC: 0DBN8ZX Excision of Sigmoid Colon, Via Natural or Artificial Opening Endoscopic, Diagnostic (ICD-10-PCS; 2023-11-06 09:30)
DX: R47.02 Dysphasia (principal); Z12.11 Encounter for screening for malignant neoplasm of colon; K21.9 Gastro-esophageal reflux disease without esophagitis; N42.9 Disorder of prostate, unspecified; K51.30 Ulcerative (chronic) rectosigmoiditis without complications; K51.50 Left sided colitis without complications; K29.50 Unspecified chronic gastritis without bleeding; B37.81 Candidal esophagitis; K63.0 Abscess of intestine; Z86.16 Personal history of COVID-19
CPT/HCPCS: 93005; 80048; 36415; 88312 ×2; 88305; 45380; 43239; J7120

== ENCOUNTER 2024-10-02 20:50 | Emergency (ER) | payer BC ==
--- OUTSIDE RECORDS SUMMARY | 2024-10-02 20:53 | XMS REPORT | Continuity of Care Document ---
Author Name Unknown Address [address] [place] [address] [facility] Address [address] [place] [address] Care Team Providers Care Jig Hand Name Role Phone PCP, PATIENT DOES NOT HAVE A Primary Care Physic florence Unavailable CLARA CANO Attending Clinician Unavailable DR ELSIE BRAVO Attending Clinician Unavailab KATHERINE Lundberg Attending Clinician Unavailable Katherine Greenwood MD Attending Clinician [phone] Doctor Unassigned, [place] Attending Clinician U navailable Ford Attending Clinician Unavailable Herminio Attending Clinician Unavailabl MARION Ramon MD(DO NOT USE) Attending Clinic florence Unavailable NANO PEREZ Attending Clinician Unavailable AGUSTÍN VELÁZQUEZ Attending Clinician Unavailable SUE FAULKNER Attending Clinician Unavailable KAMARI DONOVAN Attending Clinician Unavailable EDER SUNSHINE Attending Clinician Unavailab DR ELSIE Lopez Admitting Clinician Unavailab josue Youngblood Admitting Clinician Unavailable Herminio Admitting Clinician Unavailtorey torres Payers Payer Name Policy Type Policy Number Effective Date Expirati on Date Source [id number] [id number] 1959 00:00:00 [place] [id number] 2021 00:00:00 [place] [id number] AETNA (POS) [id number] 2013 00:00:00 Problems Condition Name Condition Details Condition Category Status Onset Date Resolution Date Last Treatment Date Treating Clinician Comments Source No known active problems No known active problems Disease [facility] Allergies, Adverse Reactions, Alerts Allergy Name Allergy Type Status Severity Reaction(s) Onset Date Inactive Date Treating Clinician Comments Source Penicill ins DA Active Unknown 02-15 00:00: 00 [facility] PENICILL IN DRUG INGREDI Active High Hives 2021-11 00:00: 00 [facility] Penicill in Propensi ty to adverse reaction s Active Hives 2021-11 00:00: 00 [facility] NO KNOWN ALLERGIE S Drug Class Active [facility] Social History Social Habit Start Date Stop Date Quantity Comments Source Exposure to SARS-CoV-2 (event) 2022-10-19 00:00:00 2022-10-29 13:20:00 Not sure [facility] Sex Assigned At 1970 00:00:00 1970 00:00:00 [facility] Smoking Status Start Date Stop Date Source Tobacco smoking consumption unknown [facility] Medications Ordered Medication Name Filled Medication Name Start Date Stop Date Current Medication? Ordering Clinician Indication Dosage Frequency Signature (SIG) Comments Components Source triamcinolo ne acetonide (KENALOG) injection 20 mg 2021-11 22:00: 00 10-29 21:11 :00 No [id number] 20mg [facility] Vital Signs Vital Name Observation Time Observation Value Comments S thaliapalomo Height 2023-02-15 14:56:00 165.1 CM Weight 2023-02-15 14:56:00 70.3 KG Systolic blood pressure 2022-10-29 19:35:00 108 mm[Hg] Seymour o [facility] Diastolic blood pressure 2022-10-29 19:35:00 69 mm[Hg] Seymour o f [facility] Heart rate 2022-10-29 19:35:00 92 /min [facility] Body temperature 2022-10-29 19:35:00 36.17 Sue [facility] Body height 2022-10-29 19:35:00 167.6 cm [facility] Body weight 2022-10-29 19:35:00 67.087 kg [facility] BMI 2022-10-29 19:35:00 23.87 kg/m2 [facility] Procedures Procedure Date / Time Performed Performing Clinicia n Source CONSENT/REFUSAL FOR DIAGNOSIS AND TREATMENT 2022-10-29 19:21:41 Doctor Unassigned, [place] [facility] Encounters Start Date/Time End Date/Time Encounter Type Admission Type Attending Clinicians Care Facility Care Department Encounter ID Source 2023-07-25 19:51:00 2023-07-25 22:00:00 Emergency ER CLARA CANO [facility] [id number] [facility] 2023-02-15 14:40:00 2023-02-15 16:24:00 Outpatient ELSIE RUSSO [facility] [id number] [facility] 2022-12-24 13:50:00 2022-12-24 13:50:00 Outpatient KATHERINE AUSTIN [facility] [id number] [facility] 2022-10-29 13:30:00 2022-10-29 15:04:44 Office Visit Katherine Greenwood [facility] [id number] [facility] 2022-10-29 13:30:00 2022-10-29 15:04:44 Outpatient KATHERINE AUSTIN [facility] [id number] [facility] 2022-10-29 00:00:00 2022-10-29 00:00:00 Orders Only Doctor Unassigned, [place] [facility] [id number] [facility] 2022-10-09 00:00:00 2022-10-09 00:00:00 Outpatient Ford GOMEZ [facility] [id number] [facility] 2021-12-26 09:54:00 2021-12-26 09:54:00 [facility] [id number] [facility] 2021-06-18 03:11:00 2021-06-18 06:42:00 Emergency ER NICOLE MARION [facility] [id number] [facility] 2018-12-03 12:18:00 2018-12-03 13:34:00 Emergency ER OWO, TOKS [facility] [id number] [facility] 2018-04-06 22:20:00 2018-04-07 00:04:00 Emergency ER OWO, TOKS [facility] [id number] [facility] 2016-10-06 01:46:00 2016-10-06 03:58:00 Emergency ER AGUSTÍN VELÁZQUEZ [facility] [id number] [facility] 2015-10-19 16:28:00 2015-10-19 19:01:00 Emergency ER DONTRELL FAULKNERLEA [facility] [id number] [facility] 2015-01-04 12:51:00 2015-01-04 15:48:00 Emergency ER KAMARI DONOVAN [facility] [id number] [facility] 2014-12-13 16:13:00 2014-12-13 16:50:00 Emergency ER EDER SUNSHINE [facility] [id number] [facility] 2014-08-29 18:15:00 2014-08-29 18:46:00 Emergency ER UGORJI, CLEMENT [facility] [id number] [facility]
[2024-10-02] MEDS ORDERED: IBUPROFEN 400 MG TAB ONE (21:52)
[2024-10-02] MEDS ORDERED: FLUCONAZOLE 100 MG TAB ONE (21:52)
[2024-10-02] MEDS ORDERED: CODEINE 30MG/APAP 300MG TAB ONE (21:52)
[2024-10-02 22:00] LABS: Albumin 2.7 g/dL (3.4-5.0); Albumin/Globulin Ratio 0.6 (1.1-1.8); Anion Gap 6.8 mEq/L (5.0-15.0); Bilirubin Total 0.3 mg/dL (0.2-1.0); Globulin 4.6 g/dL (2.3-3.5); Potassium 3.8 mEq/L (3.5-5.1); Protein, Total 7.3 g/dL (6.4-8.2)
[2024-10-02 22:22] LABS: Absolute Eosinophils 0.4 K/uL (0-0.5); Absolute Lymphocytes (CBC) 1.2 K/uL (0.7-4.9); Absolute Monocytes 0.8 K/uL (0.1-1.3); Absolute Neutrophil 2.1 K/uL (1.8-8.0); Basophils % 0.6 % (0-1.3); Eosinophils % 8.5 % (0-4.4); Hematocrit 32.1 % (39.6-49.0); Hemoglobin 11.1 g/dL (13.6-17.9); Lymphocytes % 26.4 % (15.3-44.8); MCH 29.7 pg (27.0-35.0); MCHC 34.6 g/dL (32.0-36.0); MCV 85.8 fL (80-100); MPV 7.1 fL (7.6-11.3); Neutrophils % 46.5 % (41.7-73.7); Nucleated Red Blood Cells % 0.2 % (0-0); Platelets 222 thou/uL (152-406); RBC Red Blood Cell Count 3.75 M/uL (4.33-5.43); Red Cell Distribution Width 14.3 % (12.1-15.2)
[2024-10-02 23:17] LABS: Band Neutrophils 29 % (0-1); Differential Total Cells Count 100; Eosinophils 8 % (0-3); Lymphocytes 23 % (15-42); Monocytes 13 % (0-10); Reactive Lymphocytes 4 %; Segmented Neutrophils 23 % (40-80)
[2024-10-02 23:18] LABS: Blood Morphology Comment NOT SEEN (NOT SEEN); Platelet Estimate ADEQ
--- NOTE | 2024-10-02 23:22 | ER ---
Nurse's Notes [facility] Name: Emmanuel Adam Age: 54 yrs Sex: Male : 1970 Arrival Date: 10/02/2024 Time: 20:50 Bed 5 Private MD: Diagnosis: Candidal stomatitis;Acute Wen esophagitis, acute Wen pharyngitis, HIV disease, AIDS acquired immunodeficiency syndrome Presentation: 10/02 21:00 Chief complaint: Patient states: n/v/d, sore throat and difficulty swallowing for a few me1 days. Coronavirus screen: Vaccine status: Patient reports receiving the 2nd dose of the covid vaccine. Ebola Screen: No symptoms or risks identified at this time. Initial Sepsis Screen: Does the patient meet any 2 criteria? No. Patient's initial sepsis screen is negative. Initial Sepsis Screen: Does the patient meet any 2 criteria? HR > 90 bpm. Risk Assessment: Do you want to hurt yourself or someone else? Patient reports no desire to harm self or others. Onset of symptoms was September 30, 2024. 21:00 Method Of Arrival: Ambulatory sc1 21:00 Acuity: KATY 3 me1 21:57 Initial Sepsis Screen: Does the patient have a suspected source of infection? No. al5 Patient's initial sepsis screen is negative. Historical: - Allergies: 21:01 PENICILLINS; me1 - PSHx: 21:01 dilation of esophagus; me1 - Immunization history:: Adult Immunizations up to date. - Infectious Disease History:: Denies. - Social history:: Smoking status: Patient denies any tobacco usage or history of. - Family history:: not pertinent. Screenin:38 [facility] ED Fall Risk Assessment (Adult) History of falling in the last 3 months, al5 including since admission No falls in past 3 months (0 pts) Confusion or Disorientation No (0 pts) Intoxicated or Sedated No (0 pts) Impaired Gait No (0 pts) Mobility Assist Device Used No (0 pt) Altered Elimination No (0 pt) Score/Fall Risk Level 0 - 2 = Low Risk Oriented to surroundings, Maintained a safe environment, Hourly rounding (assess needs \T\ fall precautionary measures) done. Abuse screen: Denies threats or abuse. Denies injuries from another. Nutritional screening: No deficits noted. Tuberculosis screening: No symptoms or risk factors identified. Assessment: 21:35 General: Appears in no apparent distress. uncomfortable, Behavior is calm, cooperative. al5 Pain: Denies pain. Neuro: Level of Consciousness is awake, alert, obeys commands, Oriented to person, place, time, situation. Cardiovascular: Capillary refill < 3 seconds Patient's skin is warm and dry. Respiratory: Airway is patent Respiratory effort is even, unlabored, Respiratory pattern is regular, symmetrical, Breath sounds are clear. GI: Abdomen is flat, non-distended. : No signs and/or symptoms were reported regarding the genitourinary system. EENT: Throat is reddened has patchy exudate bilaterally. Derm: Skin is intact, Skin is normal. Musculoskeletal: No signs and/or symptoms reported regarding the musculoskeletal system. 22:47 Reassessment: Patient appears in no apparent distress at this time. Patient and/or al5 family updated on plan of care and expected duration. Pain level reassessed. Patient is alert, oriented x 3, equal unlabored respirations, skin warm/dry/pink. Patient states feeling better. Vital Signs: 21:00 BP 106 / 86; Pulse 94; Resp 16; Temp 100.3; Pulse Ox 100% ; Weight 54.43 kg; Height 5 me1 ft. 6 in. ; Pain 3/10; 21:00 BP 103 / 72; Pulse 90; Resp 15; Pulse Ox 96% ; al5 21:15 BP 105 / 74; Pulse 96; Resp 16; Pulse Ox 100% on R/A; al5 21:30 BP 101 / 69; Pulse 92; Resp 14; Pulse Ox 97% on R/A; al5 22:00 BP 100 / 72; Pulse 85; Resp 15; Pulse Ox 97% on R/A; al5 22:30 BP 93 / 63; Pulse 79; Resp 16; Pulse Ox 95% on R/A; al5 23:58 BP 97 / 61; Pulse 75; Resp 15 S; Temp 98.7; Pulse Ox 99% on R/A; Pain 0/10; mt4 21:00 Body Mass Index 19.37 (54.43 kg, 167.64 cm) me1 21:00 Pain Scale: Adult me1 23:58 Pain Scale: Adult mt4 [place] Coma Score: 23:58 Eye Response: spontaneous(4). Motor Response: obeys commands(6). Verbal Response: mt4 oriented(5). Total: 15. 10/03 20:16 Eye Response: spontaneous(4). Motor Response: obeys commands(6). Verbal Response: sp4 oriented(5). Total: 15. ED Course: 10/02 20:53 Patient arrived in ED. jj6 20:57 Murphy Shelton MD is Attending Physician. sp4 21:01 Triage completed. me1 21:01 Arm band placed on Patient placed in an exam room. me1 21:06 Tamika Mejía, NAYELI is Primary Nurse. al5 21:33 CMP Sent. af3 21:33 CBC with Diff Sent. af3 21:33 Inserted saline lock: 20 gauge in right antecubital area, using aseptic technique. af3 Blood collected. Flushed with 10 mL NS. 21:57 Patient has correct armband on for positive identification. Bed in low position. Call al5 light in reach. Provided Education on: plan of care. 21:57 No provider procedures requiring assistance completed. al5 23:20 Jorge Quick MD is Referral Physician. sp4 23:58 No apparent distress. mt4 23:58 intact, bleeding controlled, No redness/swelling at site. Pressure dressing applied. mt4 Patient maintains SpO2 saturation greater than 95% on room air. Administered Medications: 21:56 Drug: Fluconazole PO 200 mg PO once Route: PO; al5 22:48 Follow up: Response: No adverse reaction al5 21:56 Drug: Acetaminophen-Codeine PO (300 mg-30 mg) 2 tabs PO once; RASS on ADMIN: Combtv4, al5 Very Agttd3, Agttd2, Rstlss1, AlertClm0, Drwsy-1, Lt Sdtn-2, Mod Sdtn-3, Dp Sdtn-4, UnArsble-5 Route: PO; 22:48 Follow up: Response: No adverse reaction; Pain is decreased al5 21:56 Drug: Ibuprofen PO 800 mg PO once Route: PO; al5 22:48 Follow up: Response: No adverse reaction; Pain is decreased al5 Medication: 21:39 VIS not applicable for this client. al5 Outcome: 23:21 Discharge ordered by . sp4 23:58 Discharged to home ambulatory, mt4 23:58 Condition: stable 23:58 Discharge instructions given to patient, Instructed on discharge instructions, follow up and referral plans. medication usage, Demonstrated understanding of instructions, follow-up care, medications, Prescriptions given X x5 10/03 00:01 Patient left the ED. mt4 Signatures: Alessandra Velasquez jj6 Murphy Shelton MD MD sp4 Evi Brown RN RN me1 Paty Pandey RN RN mt4 Tamika Mejía RN RN al5 Daniela Daley3 Corrections: (The following items were deleted from the chart) 10/02 22:47 21:35 EENT: Throat is clear alVern al5
--- NOTE | 2024-10-02 23:22 | EDPHYS ---
Physician Documentation [facility] Name: Emmanuel Adam Age: 54 yrs Sex: Male : 1970 Arrival Date: 10/02/2024 Time: 20:50 Bed 5 Private MD: ED Physician Murphy Shelton HPI: 10/02 20:57 This 54 yrs old Male presents to ER via Unassigned with complaints of Sore sp4 Throat, Difficulty Swallowing. 10/03 20:16 54-year-old male presents with complaint of a sore throat and pain on swallowing. 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 . Historical: - Allergies: 10/02 21:01 PENICILLINS; me1 - PSHx: 21:01 dilation of esophagus; me1 - Immunization history:: Adult Immunizations up to date. - Infectious Disease History:: Denies. - Social history:: Smoking status: Patient denies any tobacco usage or history of. - Family history:: not pertinent. ROS: 10/03 20:16 Constitutional: Negative for fever, chills, and weight loss, positive for sore throat sp4 and pain on swallowing. All other systems are negative, Exam: 20:16 Constitutional: This is a well developed patient who is awake, alert, and in no acute sp4 distress. Patient is ill-appearing but not in distress. Nontoxic appearing. Thin appearing male. Head/Face: Normocephalic, atraumatic. Eyes: Pupils equal round and reactive to light, extra-ocular motions intact. Lids and lashes normal. Conjunctiva and sclera are not injected. Cornea within normal limits. Periorbital areas with no swelling, redness, or edema. ENT: Nares patent. No nasal discharge, no septal abnormalities noted. Tympanic membranes are normal and external auditory canals are clear. Oropharynx with bilateral erythema redness and bilateral pharyngeal candidiasis. Neck: Trachea midline, no thyromegaly or masses palpated, and no cervical lymphadenopathy. Supple, full range of motion without nuchal rigidity, or vertebral point tenderness. Chest/axilla: Normal chest wall appearance and motion. Nontender with no deformity. No lesions are appreciated. Cardiovascular: Regular rate and rhythm with a normal S1 and S2. No gallops, murmurs, or rubs. Normal PMI, no JVD. No pulse deficits. Respiratory: Lungs have equal breath sounds bilaterally, clear to auscultation and percussion. No rales, rhonchi or wheezes noted. No increased work of breathing, no retractions or nasal flaring. Abdomen/GI: Soft, with normal bowel sounds. No distension or tympany. No guarding or rebound. No evidence of tenderness throughout. Back: No spinal tenderness. No costovertebral tenderness. Skin: Warm, dry with normal turgor. Normal color with no rashes, no lesions, and no evidence of cellulitis. MS/ Extremity: Pulses equal, no cyanosis. Neurovascular intact. Full, normal range of motion. Neuro: Awake and alert, GCS 15, oriented to person, place, time, and situation. Cranial nerves II-XII grossly intact. Motor strength 5/5 in all extremities. Sensory grossly intact. Psych: Awake, alert, with orientation to person, place and time. Behavior, mood, and affect are within normal limits Vital Signs: 10/02 21:00 BP 106 / 86; Pulse 94; Resp 16; Temp 100.3; Pulse Ox 100% ; Weight 54.43 kg; Height 5 me1 ft. 6 in. ; Pain 3/10; 21:00 BP 103 / 72; Pulse 90; Resp 15; Pulse Ox 96% ; al5 21:15 BP 105 / 74; Pulse 96; Resp 16; Pulse Ox 100% on R/A; al5 21:30 BP 101 / 69; Pulse 92; Resp 14; Pulse Ox 97% on R/A; al5 22:00 BP 100 / 72; Pulse 85; Resp 15; Pulse Ox 97% on R/A; al5 22:30 BP 93 / 63; Pulse 79; Resp 16; Pulse Ox 95% on R/A; al5 23:58 BP 97 / 61; Pulse 75; Resp 15 S; Temp 98.7; Pulse Ox 99% on R/A; Pain 0/10; mt4 21:00 Body Mass Index 19.37 (54.43 kg, 167.64 cm) me1 21:00 Pain Scale: Adult me1 23:58 Pain Scale: Adult mt4 [place] Coma Score: 23:58 Eye Response: spontaneous(4). Motor Response: obeys commands(6). Verbal Response: mt4 oriented(5). Total: 15. 10/03 20:16 Eye Response: spontaneous(4). Motor Response: obeys commands(6). Verbal Response: sp4 oriented(5). Total: 15. MDM: 10/02 21:22 Medical Screening Exam initiated sp4 10/03 20:16 Differential diagnosis: apthous stomatitis, apthous ulcer, erythema multiforme, sp4 gastroesophageal reflux disease, gingivostomatitis, krishan's angina, lymphoma, mononucleosis. Data reviewed: vital signs, nurses notes, lab test result(s). Consideration of Admission/Observation Escalation of care including admission/observation considered. ED course: Patient has AIDS defining feature which is oropharyngeal candidiasis most likely esophageal candidiasis. Patient was prescribed topical Truvada and Raltegravir starting doses. Also prescribed Diflucan for the next 30 days. Patient strongly advised to follow-up with Dr. Quick with infectious disease.. 10/02 21:23 Order name: CBC with Diff; Complete Time: 23:19 sp4 10/02 21:23 Order name: CMP; Complete Time: 22:17 sp4 10/02 22:27 Order name: Manual Differential; Complete Time: 23:19 EDMS 10/02 21:23 Order name: Saline Lock; Complete Time: 21:33 sp4 Administered Medications: 10/02 21:56 Drug: Fluconazole PO 200 mg PO once Route: PO; al5 22:48 Follow up: Response: No adverse reaction al5 21:56 Drug: Acetaminophen-Codeine PO (300 mg-30 mg) 2 tabs PO once; RASS on ADMIN: Combtv4, al5 Very Agttd3, Agttd2, Rstlss1, AlertClm0, Drwsy-1, Lt Sdtn-2, Mod Sdtn-3, Dp Sdtn-4, UnArsble-5 Route: PO; 22:48 Follow up: Response: No adverse reaction; Pain is decreased al5 21:56 Drug: Ibuprofen PO 800 mg PO once Route: PO; al5 22:48 Follow up: Response: No adverse reaction; Pain is decreased al5 Disposition Summary: 10/02/24 23:21 Discharge Ordered Problem: new sp4 Symptoms: have improved sp4 Condition: Stable sp4 Diagnosis - Candidal stomatitis sp4 - Acute Wen esophagitis, acute Wen pharyngitis, HIV disease, AIDS acquired sp4 immunodeficiency syndrome Followup: sp4 - With: Jorge Quick MD - When: 7 - 10 days - Reason: Recheck today's complaints Discharge Instructions: - Discharge Summary Sheet sp4 - HIV Infection and AIDS sp4 Forms: - Patient Portal Instructions sp4 Prescriptions: - Truvada 200-300 mg Oral tablet - take 1 tablet ORAL route daily for 30 days; 30 tablet; Refills: 0, Product sp4 Selection Permitted - acetaminophen-codeine 300-60 mg Oral tablet - take 1 tablet ORAL route every 8 hours PRN pain; 20 tablet; Refills: 0, Product sp4 Selection Permitted - raltegravir 400 mg Oral tablet - take 1 tablet ORAL route 2 times per day for 30 days; 60 tablet; Refills: 0, sp4 Product Selection Permitted - Ibuprofen 600 mg Oral Tablet - take 1 tablet ORAL route every 6 hours As needed take with food; 30 tablet; sp4 Refills: 0, Product Selection Permitted - Fluconazole 200 mg Oral tablet - take 1 tablet ORAL route once daily for 30 days; 30 tablet; Refills: 0, Product sp4 Selection Permitted - ondansetron 8 mg Oral Tablet,disintegrating - take 1 tablet ORAL route every 8 hours PRN nausea; 30 tablet; Refills: 0, sp4 Product Selection Permitted Signatures: Dispatcher [employer] Murphy Frank MD MD sp4 Evi Brown, RN RN me1 Tamika Mejía RN RN al5
[2024-10-03 00:55] VITALS: BP 97/61; TEMP 98.7; O2SAT 99
== END 2024-10-03 00:01 | disposition home or self-care (01) ==
LOC: ER 20:50
DX: B37.0 Candidal stomatitis (principal); B37.81 Candidal esophagitis; J02.8 Acute pharyngitis due to other specified organisms; B20 Human immunodeficiency virus [HIV] disease
CPT/HCPCS: 36415; 80053; 85025; 99284

== ENCOUNTER 2024-10-14 01:19 | Inpatient (IN) | payer BC ==
[2024-10-14] MEDS ORDERED: NA CHLORIDE 0.9% 1,000 ML ONE ×2 (02:24→06:50)
[2024-10-14] MEDS ORDERED: ONDANSETRON 4 MG/2 ML VIAL ONE (02:24)
[2024-10-14] MEDS ORDERED: METOCLOPRAMIDE 10 MG/2mL INJ ONE (02:24)
[2024-10-14 02:33] LABS: Absolute Lymphocytes (CBC) 0.7 K/uL (0.7-4.9); Hematocrit 33.9 % (39.6-49.0); Hemoglobin 11.4 g/dL (13.6-17.9)
[2024-10-14] MEDS ORDERED: HYDROCODONE/APAP 5/325 MG TAB ONE (02:34)
[2024-10-14 02:44] LABS: Absolute Eosinophils 0.2 K/uL (0-0.5); Absolute Monocytes 0.5 K/uL (0.1-1.3); Absolute Neutrophil 1.7 K/uL (1.8-8.0); Basophils % 0.8 % (0-1.3); Eosinophils % 7.7 % (0-4.4); Lymphocytes % 22.2 % (15.3-44.8); MCH 29.2 pg (27.0-35.0); MCHC 33.5 g/dL (32.0-36.0); MCV 87.3 fL (80-100); MPV 7.2 fL (7.6-11.3); Monocytes % 16.9 % (3.3-12.3); Neutrophils % 52.4 % (41.7-73.7); Nucleated Red Blood Cells % 0.2 % (0-0); Platelets 263 thou/uL (152-406); RBC Red Blood Cell Count 3.89 M/uL (4.33-5.43); Red Cell Distribution Width 14.7 % (12.1-15.2)
[2024-10-14 02:48] LABS: Albumin 2.8 g/dL (3.4-5.0); Albumin/Globulin Ratio 0.6 (1.1-1.8); Anion Gap 6.1 mEq/L (5.0-15.0); Bilirubin Total 0.3 mg/dL (0.2-1.0); C-Reactive Protein 4.35 mg/L (<3.00); Globulin 4.5 g/dL (2.3-3.5); Potassium 4.1 mEq/L (3.5-5.1); Protein, Total 7.3 g/dL (6.4-8.2)
[2024-10-14 02:54] LABS: Thyroid Stimulating Hormone 4.17 uIU/mL (0.358-3.740)
[2024-10-14 03:02] LABS: Specific Gravity 1.008 (1.005-1.030); Sqamous Epithelial None Seen /HPF (None Seen); Urine Bacteria None Seen /HPF (<20); Urine Bilirubin NEGATIVE (Negative); Urine Blood Negative (Negative); Urine Clarity Clear (Clear); Urine Color Colorless (Yellow); Urine Culture Reflex Order NOT NEEDED; Urine Glucose NEGATIVE (Negative); Urine Ketones NEGATIVE (Negative); Urine Microscopic Reflex YN ORDER UMIC; Urine Mucus Slight /HPF (None Seen); Urine Nitrite NEGATIVE (Negative); Urine Protein NEGATIVE (Negative); Urine RBC None Seen /HPF (None Seen); Urine Urobilinogen Normal (Normal); Urine WBC None Seen /HPF (<5)
--- NOTE | 2024-10-14 04:57 | RAD REPORT ---
EXAM: XR Chest, 2 Views CLINICAL HISTORY: CHEST PAIN TECHNIQUE: Frontal and lateral views of the chest. COMPARISON: No relevant prior studies available. FINDINGS: Lungs: Unremarkable. No consolidation. Pleural space: Unremarkable. No pneumothorax. Heart: Unremarkable. No cardiomegaly. Mediastinum: Unremarkable. Normal mediastinal contour. Bones/joints: Unremarkable. No acute fracture. IMPRESSION: No acute disease. Electronically signed by: Marcellus Holland MD 10/14/2024 03:27 AM [facility] Due to temporary technical issues with the PACS/[employer] reporting system, reports are being kapil d by the in-house radiologist without review as a courtesy to ensure prompt reporting the interpreting radiologist is fully responsible for the content of the report. Transcribed Date/Time: 10/14/2024 4:57 AM
[2024-10-14 05:10] LABS: Band Neutrophils 17 % (0-1); Differential Total Cells Count 100; Eosinophils 9 % (0-3); Lymphocytes 32 % (15-42); Metamyelocytes 1 % (0-0); Monocytes 10 % (0-10); Reactive Lymphocytes 11 %; Segmented Neutrophils 18 % (40-80)
[2024-10-14 05:11] LABS: Blood Morphology Comment NOT SEEN (NOT SEEN); Platelet Estimate ADEQ
--- NOTE | 2024-10-14 05:30 | RAD REPORT ---
CT ABDOMEN PELVIS WITH IV CONTRAST CLINICAL INDICATION: Abdominal pain. HIV positive. Nausea vomiting with epigastric pain for one month . COMPARISON: None TECHNIQUE: CT images of the abdomen and pelvis obtained following administration of intravenous contr ast. Multiplanar reformats were provided. Dose-optimization techniques such as automated exposure control, iterative reconstruction, and mA and/or kV adjustment for patient size was utilized for this examination. FINDINGS: LOWER CHEST: Unremarkable. LIVER: Unremarkable. BILIARY: Unremarkable. PANCREAS: Unremarkable. SPLEEN: Unremarkable. ADRENALS: Unremarkable. KIDNEYS/URETERS: Unremarkable. STOMACH: Small hiatal hernia. Prominent gastric mucosal folds of the stomach could be due to underdis tention versus hypertrophy or gastritis. BOWEL: There is swirling appearance of mesenteric vessels in the anterior abdomen (series 401 image 4 [id number]), concerning for developing volvulus. There are multiple mildly fluid distended small bowel loops. There is diffuse mild mucosal thickening of small bowel and colon, suspicious for enterocoliti s. There are mild luminal narrowing of small bowel near the swirling mesenteric vessels. APPENDIX: Normal. MESENTERY/PERITONEUM: Multiple prominent mesenteric lymph nodes are seen in bilateral abdomen. RETROPERITONEUM: No adenopathy. Multiple enlarged inguinal lymph nodes are present. Small lymph nodes are also seen along bilateral iliac chain. URINARY BLADDER: Circumferential wall thickening of urinary bladder may be secondary to bladder outle t obstruction by prostatomegaly. REPRODUCTIVE: Prostate gland is enlarged, elevating the bladder base. VASCULAR: No aortic aneurysm. ABDOMINAL/PELVIC WALL: There is a small calcification in the right scrotal sac. Probable trace right scrotal hydrocele. BONES: Unremarkable. IMPRESSION: 1. Swirling appearance of mesenteric vessels in the anterior abdomen, concerning for developing vol vulus. There may be early development of small bowel obstruction, noting multiple fluid distended small bowel loops. 2. Diffuse mild mucosal thickening of small bowel and colon, suspicious for enterocolitis. 3. Prominent gastric mucosal folds of the stomach could be due to underdistention versus hypertroph y or gastritis. 4. Mild mesenteric, pelvic and inguinal lymphadenopathy. 5. Circumferential wall thickening of urinary bladder may be secondary to bladder outlet obstructio n by prostatomegaly. 6. Probable trace right scrotal hydrocele. Electronically signed by: Zunilda Gordon MD 10/14/2024 05:20 AM [facility] Due to temporary technical issues with the PACS/[employer] reporting system, reports are being kapil d by the in-house radiologist without review as a courtesy to ensure prompt reporting the interpreting radiologist is fully responsible for the content of the report. Transcribed Date/Time: 10/14/2024 5:30 AM
[2024-10-14] MEDS ORDERED: ALBUMIN HUMAN 25% 100 ML IV ONE (06:50)
--- NOTE | 2024-10-14 07:01 | EDPHYS ---
Physician Documentation [facility] Name: Emmanuel Adam Age: 54 yrs Sex: Male : 1970 Arrival Date: 10/14/2024 Time: 01:19 Bed 2 Private MD: ED Physician Murphy Shelton HPI: 10/14 01:34 This 54 yrs old Male presents to ER via Unassigned with complaints of sp4 Decreased Appetite, Vomiting. 06:52 54-year-old male with history of HIV AIDS presents with acute worsening abdominal pain sp4 with episodic vomiting starting several days ago. 06:53 on 10/02/2024 patient was prescribed - Truvada 200-300 mg Oral tablet sp4 acetaminophen-codeine 300-60 mg Oral tablet raltegravir 400 mg Oral tablet Fluconazole 200 mg Oral tablet ondansetron 8 mg Oral Tablet,disintegrating . Historical: - Allergies: 01:28 PENICILLINS; ha1 - PMHx: 01:28 HIV positive; ha1 - PSHx: 01:28 dilation of esophagus; ha1 - Immunization history:: Adult Immunizations not up to date. - Infectious Disease History:: Denies. - Social history:: Smoking status: unknown. - Family history:: not pertinent. ROS: 06:53 Constitutional: Negative for fever, chills, and weight loss, positive abdominal pain sp4 and vomiting positive for history of HIV 06:53 All other systems are negative, Exam: 06:53 Constitutional: This is a well developed, well nourished patient who is awake, alert, sp4 and in no acute distress. Head/Face: Normocephalic, atraumatic. Eyes: Pupils equal round and reactive to light, extra-ocular motions intact. Lids and lashes normal. Conjunctiva and sclera are not injected. Cornea within normal limits. Periorbital areas with no swelling, redness, or edema. ENT: Nares patent. No nasal discharge, no septal abnormalities noted. Tympanic membranes are normal and external auditory canals are clear. Oropharynx with no redness, swelling, or masses, exudates, or evidence of obstruction, uvula midline. Mucous membranes moist. Neck: Trachea midline, no thyromegaly or masses palpated, and no cervical lymphadenopathy. Supple, full range of motion without nuchal rigidity, or vertebral point tenderness. Chest/axilla: Normal chest wall appearance and motion. Nontender with no deformity. No lesions are appreciated. Cardiovascular: Regular rate and rhythm with a normal S1 and S2. No gallops, murmurs, or rubs. Normal PMI, no JVD. No pulse deficits. Respiratory: Lungs have equal breath sounds bilaterally, clear to auscultation and percussion. No rales, rhonchi or wheezes noted. No increased work of breathing, no retractions or nasal flaring. Abdomen/GI: Soft, with normal bowel sounds. No distension or tympany. No guarding or rebound. No evidence of tenderness throughout. Back: No spinal tenderness. No costovertebral tenderness. Skin: Warm, dry with normal turgor. Normal color with no rashes, no lesions, and no evidence of cellulitis. MS/ Extremity: Pulses equal, no cyanosis. Neurovascular intact. Full, normal range of motion. Neuro: Awake and alert, GCS 15, oriented to person, place, time, and situation. Cranial nerves II-XII grossly intact. Motor strength 5/5 in all extremities. Sensory grossly intact. Psych: Awake, alert, with orientation to person, place and time. Behavior, mood, and affect are within normal limits Vital Signs: 01:28 BP 105 / 76; Pulse 92; Resp 17 S; Temp 97.6(T); Pulse Ox 100% on R/A; Weight 52.16 kg; ha1 Height 5 ft. 6 in. ; 02:40 BP 106 / 76; Pulse 86; Resp 18; Pulse Ox 100% ; cp4 04:56 BP 106 / 79; Pulse 65; Resp 18; Pulse Ox 100% ; cp4 05:55 BP 97 / 70; Pulse 69; Resp 18; Pulse Ox 100% ; cp4 07:00 BP 113 / 79; Pulse 61; Resp 18; Pulse Ox 100% ; cp4 08:00 BP 90 / 64; Pulse 60; Resp 15 S; Pulse Ox 97% on R/A; aa5 01:28 Body Mass Index 18.56 (52.16 kg, 167.64 cm) ha1 [place] Coma Score: 06:53 Eye Response: spontaneous(4). Motor Response: obeys commands(6). Verbal Response: sp4 oriented(5). Total: 15. MDM: 03:43 Medical Screening Exam initiated sp4 03:49 ED course: EXAM: XR Chest, 2 Views CLINICAL HISTORY: CHEST PAIN TECHNIQUE: Frontal and sp4 lateral views of the chest. COMPARISON: No relevant prior studies available. FINDINGS: Lungs: Unremarkable. No consolidation. Pleural space: Unremarkable. No pneumothorax. Heart: Unremarkable. No cardiomegaly. Mediastinum: Unremarkable. Normal mediastinal contour. Bones/joints: Unremarkable. No acute fracture. IMPRESSION: No acute disease.. 06:57 Data reviewed: vital signs, nurses notes. ED course: CTABDOMEN PELVIS WITH IV CONTRAST sp4 CLINICAL INDICATION: Abdominal pain. HIV positive. Nausea vomiting with epigastric pain for one month. COMPARISON: None TECHNIQUE: CT images of the abdomen and pelvis obtained following administration of intravenous contrast. Multiplanar reformats were provided. Dose-optimization techniques such as automated exposure control, iterative reconstruction, and mA and/or kV adjustment for patient size was utilized for this examination. FINDINGS: LOWER CHEST: Unremarkable. LIVER: Unremarkable. BILIARY: Unremarkable. PANCREAS: Unremarkable. SPLEEN: Unremarkable. ADRENALS: Unremarkable. KIDNEYS/URETERS: Unremarkable. STOMACH: Small hiatal hernia. Prominent gastric mucosal folds of the stomach could be due to underdistention versus hypertrophy or gastritis. BOWEL: There is swirling appearance of mesenteric vessels in the anterior abdomen (series 401 image [id number]), concerning for developing volvulus. There are multiple mildly fluid distended small bowel loops. There is diffuse mild mucosal thickening of small bowel and colon, suspicious for enterocolitis. There are mild luminal narrowing of small bowel near the swirling mesenteric vessels. APPENDIX: Normal. MESENTERY/PERITONEUM: Multiple prominent mesenteric lymph nodes are seen in bilateral abdomen. RETROPERITONEUM: No adenopathy. Multiple enlarged inguinal lymph nodes are present. Small lymph nodes are also seen along bilateral iliac chain. URINARYBLADDER: Circumferential wall thickening of urinary bladder may be secondary to bladder outlet obstruction by prostatomegaly. REPRODUCTIVE: Prostate gland is enlarged, elevating the bladder base. VASCULAR: No aortic aneurysm. ABDOMINAL/PELVIC WALL: There is a small calcification in the right scrotal sac. Probable trace right scrotal hydrocele. BONES: Unremarkable. IMPRESSION: 1. Swirling appearance of mesenteric vessels in the anterior abdomen, concerning for developing volvulus. There may be early development of small bowel obstruction, noting multiple fluid distended small bowel loops. 2. Diffuse mild mucosal thickening of small bowel and colon, suspicious for enterocolitis. 3. Prominent gastric mucosal folds of the stomach could be due to underdistention versus hypertrophy or gastritis. 4. Mild mesenteric, pelvic and inguinal lymphadenopathy. 5. Circumferential wall thickening of urinary bladder may be secondary to bladder outlet obstruction by prostatomegaly. 6. Probable trace right scrotal hydrocele. Electronically signed by: Zunilda Gordon MD 10/14/2024 05:20 AM LOCAL AREA NETWORK ADMINISTRATOR. 06:59 Differential diagnosis: Nonspecific abd pain, gastritis, cholecystitis, pancreatitis, sp4 appendicitis, diverticulitis, viral gastroenteritis, gastroenteritis. Consideration of Admission/Observation Patient was admitted/placed on observation. Escalation of care including admission/observation considered. Management of patient was discussed with the following: Hospitalist: Admission team. Inventory Audit Clerk: Christine JOEL . 10/14 01:34 Order name: CBC with Diff; Complete Time: 06:41 sp4 10/14 01:34 Order name: CMP; Complete Time: 04:24 sp4 10/14 01:34 Order name: Lipase; Complete Time: 04:24 sp4 10/14 01:34 Order name: Urinalysis w/ reflexes; Complete Time: 04:24 sp4 10/14 01:35 Order name: CRP; Complete Time: 04:24 sp4 10/14 01:35 Order name: TSH; Complete Time: 04:24 sp4 10/14 01:35 Order name: T4 Free; Complete Time: 04:24 sp4 10/14 02:50 Order name: Manual Differential; Complete Time: 06:41 EDMS 10/14 06:45 Order name: Lactate w/ 2H reflex if indic.; Complete Time: 09:55 sp4 10/14 08:05 Order name: Basic Metabolic Panel EDMS 10/14 08:05 Order name: Basic Metabolic Panel EDMS 10/14 08:05 Order name: CBC with Automated Diff EDMS 10/14 08:05 Order name: CBC with Automated Diff EDMS 10/14 08:05 Order name: Magnesium EDMS 10/14 08:05 Order name: Magnesium EDMS 10/14 08:05 Order name: Phosphorus EDMS 10/14 08:05 Order name: Phosphorus EDMS 10/14 01:35 Order name: Chest Pa And Lat (2 Views) XRAY; Complete Time: 06:41 sp4 10/14 02:28 Order name: CT Abd/Pelvis - IV Contrast Only; Complete Time: 06:41 sp4 10/14 01:34 Order name: IV Saline Lock; Complete Time: 01:57 sp4 10/14 01:34 Order name: Labs collected and sent; Complete Time: 01:57 sp4 10/14 06:46 Order name: NPO; Complete Time: 06:49 sp4 Administered Medications: 02:29 Drug: Ondansetron IVP 4 mg IVP once; over 2 minutes Route: IVP; Site: left antecubital; cp4 03:20 Follow up: Response: No adverse reaction cp4 02:29 Drug: NS 0.9% IV 1000 ml IV at 1 bolus Per protocol; to be given as a bolus over 60 cp4 minutes Route: IV; Rate: 1 bolus; Site: left antecubital; 03:47 Follow up: IV Status: Completed infusion cp4 02:29 Drug: metoCLOPramide IVP 10 mg IVP once; over 1 to 2 minutes Route: IVP; Site: left cp4 antecubital; 03:20 Follow up: Response: No adverse reaction cp4 02:39 Drug: HYDROcodone-acetaminophen PO 5 mg-325 mg 2 tabs PO once Route: PO; cp4 03:20 Follow up: Response: No adverse reaction; Pain is decreased cp4 06:58 Drug: NS 0.9% IV 1000 ml IV at 125 ml/hr continuous Route: IV; Rate: 125 ml/hr; Site: cp4 left antecubital; 06:58 Drug: Albumin IVPB 25 grams 100 ml IVPB once; (Note: Albumin 25% concentration) Volume: cp4 100 ml; Route: IVPB; Site: left antecubital; 07:58 Follow up: IV Status: Completed infusion; IV Intake: 100ml aa5 Disposition Summary: 10/14/24 07:00 Hospitalization Ordered Notes: Hospitalization Status: Inpatient Admission sp4 Provider: Damian Ford [facility] sp4 Condition: Stable sp4 Problem: new sp4 Symptoms: have improved sp4 Bed/Room Type: Standard sp4 Room Assignment: 402(10/14/24 08:21) eb Diagnosis - Partial small bowel obstruction, acute enterocolitis, HIV disease sp4 Forms: - Medication Reconciliation Form sp4 - SBAR form sp4 - Leadership Thank You Letter sp4 Signatures: Dispatcher [employer] Rebeca Nur Marcus, DO [place] ms3 Magdalene Diana, RN RN ha1 Murphy Shelton MD MD sp4 Alecia Lockett cp4 Marsha Hinojosa RN aa5 Corrections: (The following items were deleted from the chart) 08:21 07:00 spCandice triplett
--- NOTE | 2024-10-14 07:01 | ER ---
Nurse's Notes [facility] Name: Emmanuel Adam Age: 54 yrs Sex: Male : 1970 Arrival Date: 10/14/2024 Time: :19 Bed 2 Private MD: Diagnosis: Partial small bowel obstruction, acute enterocolitis, HIV disease Presentation: 10/14 01:28 Chief complaint: Patient states: NAUSEA AND VOMITING FOR A MONTH. ha1 :28 Coronavirus screen: Client denies travel out of the [place] in the last 14 days. Ebola ha1 Screen: No symptoms or risks identified at this time. Initial Sepsis Screen: Does the patient meet any 2 criteria? No. Patient's initial sepsis screen is negative. Does the patient have a suspected source of infection? No. Patient's initial sepsis screen is negative. Risk Assessment: Do you want to hurt yourself or someone else? Patient reports no desire to harm self or others. Onset of symptoms was October 14, 2024. Method Of Arrival: Ambulatory ha1 : Acuity: KATY 3 ha1 Triage Assessment: : General: Appears comfortable, Behavior is calm, cooperative. Pain: Complains of pain in ha1 epigastric area Pain does not radiate. Pain currently is 5 out of 10 on a pain scale. Neuro: Level of Consciousness is awake, alert, obeys commands, Oriented to person, place, time, situation. Cardiovascular: Patient's skin is warm and dry. Respiratory: Airway is patent Respiratory effort is even, unlabored, Respiratory pattern is regular, symmetrical. GI: Reports nausea, vomiting. Historical: - Allergies: : PENICILLINS; ha1 - PMHx: : HIV positive; ha1 - PSHx: : dilation of esophagus; ha1 - Immunization history:: Adult Immunizations not up to date. - Infectious Disease History:: Denies. - Social history:: Smoking status: unknown. - Family history:: not pertinent. Screenin:40 [facility] ED Fall Risk Assessment (Adult) History of falling in the last 3 months, cp4 including since admission No falls in past 3 months (0 pts) Confusion or Disorientation No (0 pts) Intoxicated or Sedated No (0 pts) Impaired Gait No (0 pts) Mobility Assist Device Used No (0 pt) Altered Elimination No (0 pt) Score/Fall Risk Level 0 - 2 = Low Risk Oriented to surroundings, Maintained a safe environment, Assessed \T\ reinforced patient's understanding of fall precautions, Hourly rounding (assess needs \T\ fall precautionary measures) done. Abuse screen: Denies threats or abuse. Nutritional screening: No deficits noted. Tuberculosis screening: No symptoms or risk factors identified. Assessment: 02:40 General: Appears in no apparent distress. uncomfortable, Behavior is calm, cooperative, cp4 appropriate for age. Pain: Complains of pain in abdomen and epigastric area Pain currently is 7 out of 10 on a pain scale. Neuro: Level of Consciousness is awake, alert, obeys commands, Oriented to person, place, time, situation. Cardiovascular: Patient's skin is warm and dry. Respiratory: Airway is patent Respiratory effort is even, unlabored. GI: Abdomen is flat, non-distended, Bowel sounds present X 4 quads. Abd is soft and non tender X 4 quads. : No signs and/or symptoms were reported regarding the genitourinary system. EENT: No signs and/or symptoms were reported regarding the EENT system. Derm: No signs and/or symptoms reported regarding the dermatologic system. Musculoskeletal: No signs and/or symptoms reported regarding the musculoskeletal system. 07:10 General: Appears comfortable, slender, Behavior is calm, cooperative. Pain: Denies aa5 pain. Neuro: Level of Consciousness is awake, alert, obeys commands, Oriented to person, place, time, situation. Cardiovascular: Heart tones S1 S2 present Rhythm is regular. Respiratory: Airway is patent Respiratory effort is even, unlabored, relaxed, Respiratory pattern is regular, symmetrical. GI: Abdomen is flat, non-distended, Bowel sounds present X 4 quads. Abd is soft and non tender X 4 quads. Patient currently denies nausea. : No signs and/or symptoms were reported regarding the genitourinary system. EENT: No signs and/or symptoms were reported regarding the EENT system. Derm: Skin is pink, warm \T\ dry. Musculoskeletal: Range of motion: intact in all extremities. 08:00 Reassessment: Patient is alert, oriented x 3, equal unlabored respirations, skin aa5 warm/dry/pink. Additional warm blankets provided for comfort. . Vital Signs: 01:28 BP 105 / 76; Pulse 92; Resp 17 S; Temp 97.6(T); Pulse Ox 100% on R/A; Weight 52.16 kg; ha1 Height 5 ft. 6 in. ; 02:40 BP 106 / 76; Pulse 86; Resp 18; Pulse Ox 100% ; cp4 04:56 BP 106 / 79; Pulse 65; Resp 18; Pulse Ox 100% ; cp4 05:55 BP 97 / 70; Pulse 69; Resp 18; Pulse Ox 100% ; cp4 07:00 BP 113 / 79; Pulse 61; Resp 18; Pulse Ox 100% ; cp4 08:00 BP 90 / 64; Pulse 60; Resp 15 S; Pulse Ox 97% on R/A; aa5 01:28 Body Mass Index 18.56 (52.16 kg, 167.64 cm) ha1 [place] Coma Score: 06:53 Eye Response: spontaneous(4). Motor Response: obeys commands(6). Verbal Response: sp4 oriented(5). Total: 15. ED Course: 01:23 Patient arrived in ED. mr 01:31 JESSICA MEANS, RN is Primary Nurse. dd2 01:34 Murphy Shelton MD is Attending Physician. sp4 01:38 Arm band placed on right wrist. rs5 01:56 Initial lab(s) drawn, by ED staff, sent to lab. Inserted saline lock: 20 gauge in left cp4 antecubital area, using aseptic technique. Blood collected. Flushed with 10 mL NS. 01:57 CBC with Diff Sent. cp4 01:57 CMP Sent. cp4 01:57 Lipase Sent. cp4 01:57 T4 Free Sent. cp4 01:57 TSH Sent. cp4 01:57 CRP Sent. cp4 02:03 Chest Pa And Lat (2 Views) XRAY In Process Unspecified. EDMS 02:13 Triage completed. ha1 02:22 Alecia Lockett is Primary Nurse. cp4 02:40 No provider procedures requiring assistance completed. cp4 02:40 Bed in low position. Call light in reach. Side rails up X 1. cp4 02:49 Urine collected: clean catch specimen, clear. cp4 03:29 CT Abd/Pelvis - IV Contrast Only In Process Unspecified. EDMS 07:00 Damian Ford is Hospitalizing Provider. sp4 09:15 Patient admitted, IV remains in place. rs5 09:15 Arm band placed on. rs5 09:15 Provided Education on: need for admit. rs5 Administered Medications: 02:29 Drug: Ondansetron IVP 4 mg IVP once; over 2 minutes Route: IVP; Site: left antecubital; cp4 03:20 Follow up: Response: No adverse reaction cp4 02:29 Drug: NS 0.9% IV 1000 ml IV at 1 bolus Per protocol; to be given as a bolus over 60 cp4 minutes Route: IV; Rate: 1 bolus; Site: left antecubital; 03:47 Follow up: IV Status: Completed infusion cp4 02:29 Drug: metoCLOPramide IVP 10 mg IVP once; over 1 to 2 minutes Route: IVP; Site: left cp4 antecubital; 03:20 Follow up: Response: No adverse reaction cp4 02:39 Drug: HYDROcodone-acetaminophen PO 5 mg-325 mg 2 tabs PO once Route: PO; cp4 03:20 Follow up: Response: No adverse reaction; Pain is decreased cp4 06:58 Drug: NS 0.9% IV 1000 ml IV at 125 ml/hr continuous Route: IV; Rate: 125 ml/hr; Site: cp4 left antecubital; 06:58 Drug: Albumin IVPB 25 grams 100 ml IVPB once; (Note: Albumin 25% concentration) Volume: cp4 100 ml; Route: IVPB; Site: left antecubital; 07:58 Follow up: IV Status: Completed infusion; IV Intake: 100ml aa5 Medication: 02:40 VIS not applicable for this client. cp4 Intake: 07:58 IV: 100ml; Total: 100ml. aa5 Outcome: 07:00 Decision to Hospitalize by Provider. sp4 09:15 Admitted to Med/surg accompanied by tech, with chart, rs5 09:15 Condition: stable 09:15 Instructed on the need for admit, Demonstrated understanding of instructions, 09:15 Patient left the ED. rs5 Signatures: Dispatcher [employer] EDIA Ct Kaur, Reg Reg mr HinojosaMarsha RN RN aa5 Magdalene Diana RN RN ha1 Yoandy Kimball RN RN rs5 Murphy Shelton MD MD sp4 Alecia Lockett cp4 JESSICA MEANS, RN RN dd2
--- NOTE | 2024-10-14 07:34 | P.HP ---
Certification for Inpatient Patient admitted to: Observation With expected LOS: <2 Midnights Patient will require the following post-hospital care: None Practitioner: I am a practitioner with admitting privileges, knowledge of patient current condition, hospital course, and medical plan of care. Services: Services provided to patient in accordance with Admission requirements found in Title 42 Section 412.3 of the Code of Federal Regulations Patient History Date of Service: 10/15/24 Reason for admission: partial SBO History of Present Illness: Emmanuel Adam is a 54 year old male with Pmhx HIV AIDs who presents to the ED with chief complaint of decreased appetite and vomiting. He was recently seen in the ED on 10/02 and diagnosed with HIV AIDs being prescribed Truvada 200-300 mg Oral tablet, acetaminophen-codeine 300-60 mg, Oral tablet raltegravir 400 mg, Oral tablet Fluconazole, 200 mg Oral tablet, and ondansetron 8 mg Oral Tablet. Laboratory evaluation significant for WBC 3.2, Absolute Neutrophils 1.7, H/H . CT abd/pelvis reports "Stomach: Small hiatal hernia. Prominent gastric mucosal folds of the stomach could be due to underdistention versus hypertrophy or gastritis BOWEL: There is swirling appearance of mesenteric vessels in the anterior abdomen (series 401 image [id number]), concerning for developing volvulus. There are multiple mildly fluid distended small bowel loops. There is diffuse mild mucosal thickening of small bowel and colon, suspicious for enterocolitis. There are mild luminal narrowing of small bowel near the swirling mesenteric vessels. MESENTERY/PERITONEUM: Multiple prominent mesenteric lymph nodes are seen in bilateral abdomen RETROPERITONEUM: No adenopathy. Multiple enlarged inguinal lymph nodes are present. Small lymph nodes are also seen along bilateral iliac chain. URINARY BLADDER: Circumferential wall thickening of urinary bladder may be secondary to bladder outlet obstruction by prostatomegaly. ABDOMINAL/PELVIC WALL: There is a small calcification in the right scrotal sac. Probable trace right scrotal hydrocele. Chest xray reports " No acute disease." Emmanuel will be admitted to hospitalist service for further evaluation and treatment of Acute partial small bowel obstruction suspect developing volvulus. Allergies Penicillins Allergy (Verified 11/04/23 13:57) Hives Home Medications: Emtricitabine/Tenofovir (Tdf) [Emtricitabine-Tenofv 200-300Mg] 1 tab PO DAILY 10/14/24 Fluconazole 1 tab PO DAILY 10/14/24 Raltegravir Potassium [Isentress] 1 tab PO BID 10/14/24 - Past Medical/Surgical History -: HIV -: Esophagus dilation - Social History Smoking Status: Never smoker Alcohol use: No CD- Drugs: No Review of Systems Gastrointestinal: Vomiting, Abdominal Pain Musculoskeletal: Back Pain Physical Examination - Physical Exam General: Alert, In no apparent distress, Oriented x3 HEENT: Atraumatic, Normocephalic, PERRLA Neck: Supple, 2+ carotid pulse no bruit Respiratory: Clear to auscultation bilaterally, Normal air movement Cardiovascular: Normal pulses, Regular rate/rhythm, Normal S1 S2 Capillary refill: <2 Seconds Gastrointestinal: Normal bowel sounds, Soft and benign Musculoskeletal: No clubbing Integumentary: No rashes Neurological: Normal speech, Normal tone - Studies Laboratory Data (last 24 hrs) 10/14/24 10/14/24 01:51 01:51 WBC 3.20 L Hgb 11.4 L Hct 33.9 L Plt Count 263 Sodium 136 Potassium 4.1 BUN 17 Creatinine 0.99 Glucose 95 Total Bilirubin 0.3 AST 20 ALT 25 Alkaline Phosphatase 454 H Lipase 45 Assessment and Plan - Plan Assessment and Plam Acute partial SBO suspect developing volulus Acute enterocolitis/gastritis Abdominal pain with vomiting Lymphadenopathy -CT abd/pelvis reports "Swirling appearance of mesenteric vessels in the an terior abdomen, concerning for developing volvulus. Diffuse mild mucosal thickening of small bowel and colon, suspicious for enterocolitis. There may be early development of small bowel obstruction, noting multiple fluid distended small bowel loops. Mild mesenteric, pelvic and inguinal lymphadenopathy." -Dr. King consulted -pain control -NPO -IVF -antiemetics -Protonix BID Prostatomegaly Right scrotal hydrocele, Trace - CT CAP reports "Circumferential wall thickening of urinary bladder may be secondary to bladder outlet obstruction by prostatomegaly." -monitor Neutropenia Leukopenia Anemia - Monitor in AM labs History of HIV -Reports 19 year diagnosis -unable to obtain medications -new prescriptions provided Sep 3 -Continue home medications DVT ppx heparin Full code LOS 2 days Discharge Plan: Home Plan to discharge in: 24 Hours - Advance Directives Does patient have a Living Will: No Does patient have a Durable POA for Healthcare: No
[2024-10-14] MEDS ORDERED: HYDRALAZINE HCL 20 MG/ML VIAL IV PRN (07:57)
[2024-10-14] MEDS ORDERED: SODIUM CHLORIDE 0.9% 10ML INJ IV PRN (07:57)
[2024-10-14] MEDS ORDERED: MORPHINE 2 MG/ML SYR IV PRN (07:57)
[2024-10-14] MEDS ORDERED: ONDANSETRON 4 MG/2 ML VIAL IV PRN (07:57)
[2024-10-14] MEDS ORDERED: ACETAMINOPHEN 650MG/RECT SUPP PR PRN (07:57)
[2024-10-14] MEDS: D5 0.45 NS 1,000 ML IV SCH (08:00)
[2024-10-14] MEDS: HEPARIN 5000 UNIT/ML 1 ML VIAL SQ SCH (10:16)
[2024-10-14] MEDS: PANTOPRAZOLE 40 MG INJ IVP SCH (10:16)
[2024-10-14 11:56] VITALS: BMI 18.5
[2024-10-14] MEDS: FLU (Fluarix Triv) TS24-25(6MOS UP)/PF 45 MCG/0.5 ML Syringe IM ONE (14:00)
[2024-10-14] MEDS: RALTEGRAVIR POTASSIUM 400 MG TABLET PO SCH (21:00)
[2024-10-15] MEDS: FLUCONAZOLE 100 MG TAB PO SCH (07:57)
[2024-10-15] MEDS: EMTRICITABINE/TENOFOVIR 1 TAB PO SCH (07:59)
[2024-10-15 08:33] LABS: Absolute Eosinophils 0.2 K/uL (0-0.5); Absolute Lymphocytes (CBC) 0.9 K/uL (0.7-4.9); Absolute Monocytes 0.4 K/uL (0.1-1.3); Absolute Neutrophil 1.3 K/uL (1.8-8.0); Basophils % 1.4 % (0-1.3); Eosinophils % 8.2 % (0-4.4); Hematocrit 31.2 % (39.6-49.0); Hemoglobin 10.1 g/dL (13.6-17.9); Lymphocytes % 31.6 % (15.3-44.8); MCH 28.6 pg (27.0-35.0); MCHC 32.4 g/dL (32.0-36.0); MCV 88.3 fL (80-100); MPV 7.7 fL (7.6-11.3); Monocytes % 14.4 % (3.3-12.3); Neutrophils % 44.4 % (41.7-73.7); Platelets 212 thou/uL (152-406); RBC Red Blood Cell Count 3.53 M/uL (4.33-5.43); Red Cell Distribution Width 14.7 % (12.1-15.2)
[2024-10-15 08:40] LABS: Anion Gap 6.9 mEq/L (5.0-15.0); Magnesium 2.3 mg/dL (1.6-2.4); Phosphorus 3.5 mg/dL (2.5-4.9); Potassium 3.9 mEq/L (3.5-5.1)
[2024-10-15 09:43] LABS: Blood Morphology Comment NOT SEEN (NOT SEEN); Platelet Estimate ADEQ; White Blood Cell Scan OK (OK)
[2024-10-15] MEDS ORDERED: INFLUENZA VACCINE (for 6+ mo) 0.5 ML DOSE IMVAC ONE (10:00)
[2024-10-15 11:46] VITALS: O2SAT 98
[2024-10-15] MEDS: POTASSIUM CL SA 10 MEQ TAB PO ONE (12:20)
--- NOTE | 2024-10-15 14:45 | RAD REPORT ---
EXAM: XR Abdomen 1 View (KUB) HISTORY: [facility] ff up eval for SBO COMPARISON: CT abdomen pelvis 10/14/2024 FINDINGS: Single view of the abdomen shows prominence of the small bowel caliber in the left upper qu adrant, measuring up to 3.3 cm in caliber, probably stable compared to the prior exam. Mild stool burden. No suspicious calcifications are seen. The bones are unremarkable. IMPRESSION: Persistent mild small bowel caliber prominence, may reflect ileus or early obstruction.
[2024-10-15] MEDS: MINERAL OIL 30 ML UCUP PO ONE (15:22)
--- NOTE | 2024-10-15 18:34 | P.PN ---
Date of Service: 10/15/24 Subjective Reports feeling better this morning and passing gas KUB reports "Persistent mild small bowel caliber prominence, may reflect ileus or early obstruction" Administered mineral oil and start soft diet ROS 10 point ROS as noted above, otherwise negative Physical Exam General: Alert and Oriented x3, NAD HEENT: Atraumatic, Normocephalic, PERRLA Neck: Supple, 2+ carotid pulse no bruit Respiratory: Clear to auscultation bilaterally, Normal air movement, on RA Cardiovascular: Normal pulses, NSR, Normal S1 S2 Capillary refill: <2 Seconds Gastrointestinal: Normal bowel sounds, Soft and benign on palpation, ND/NT Musculoskeletal: No clubbing Integumentary: No rashes Neurological: Normal speech, Normal tone Vitals Reviewed Problem list Acute partial SBO suspect developing volulus Acute enterocolitis/gastritis Abdominal pain with vomiting Lymphadenopathy Prostatomegaly Right scrotal hydrocele, Trace Neutropenia Leukopenia Anemia History of HIV Assessment and Plan Acute partial SBO suspect developing volulus Acute enterocolitis/gastritis Abdominal pain with vomiting Lymphadenopathy -CT abd/pelvis reports "Swirling appearance of mesenteric vessels in the anterior abdomen, concerning for developing volvulus. Diffuse mild mucosal thickening of small bowel and colon, suspicious for enterocolitis. There may be early development of small bowel obstruction, noting multiple fluid distended small bowel loops. Mild mesenteric, pelvic and inguinal lymphadenopathy." -KUB reports "Persistent mild small bowel caliber prominence, may reflect ileus or early obstruction" -Dr. King consulted -pain control -GI soft diet -IVF -antiemetics -Protonix BID Prostatomegaly Right scrotal hydrocele, Trace - CT CAP reports "Circumferential wall thickening of urinary bladder may be secondary to bladder outlet obstruction by prostatomegaly." -monitor Neutropenia Leukopenia Anemia - Monitor in AM labs -White blood cells 2.9, absolute neutrophils 1.3, H&H 09/29 History of HIV -Reports 19 year diagnosis -unable to obtain medications -new prescriptions provided Nov 3 -Continue home medications DVT ppx heparin Full code LOS 2 days Discharge Plan: Home Plan to discharge in: 24 Hours <Paty Bernal - Last Filed: 10/15/24 18:28> Patient seen and examined. Plan of care discussed with Ms. Bernal. I agree with above plan of care. Patient stated his abdominal pain has resolved. Repeat KUB report persistent small bowel dilatation which may reflect ileus or early bowel obstruction. Patient states he has been passing flatus. GI soft diet per general surgery. Trial of oral mineral oil. <florence maddox - Last Filed: 10/16/24 18:00>
--- NOTE | 2024-10-15 19:29 | CON ---
Date of Consultation: 10/14/2024 Brief History Of Present Illness: The patient is a 54-year-old male with a history of HIV/AIDS, who presents to the ED. He is not taking care of his AIDS and follows up with nobody, but does have an a ppointment as an outpatient and ultimately have his HIV/AIDS managed by an Infectious Disease special ist, but has not been receiving any medication for this up to now with a significant close followup. He has been treated in the past for this but not in the recent history. He presents with decreased appetite, nausea, vomiting, and abdominal pain beginning the day before admission. He states that si nce admission, however, his pain is essentially resolved. He has had loose stools and diarrhea throu ghout this entire occasion. His nausea and vomiting have completely resolved as well, and he is comp letely asymptomatic at this point after being seen on the floor by myself since being brought from [facility] ED. Past Medical History: Significant for HIV/AIDS, esophageal stenosis. Past Surgical History: Includes only esophageal dilation. He has had no abdominal surgery. Allergies: TO PENICILLIN. Medications: Include Emtricitabine/tenofovir, fluconazole, and Isentress. Social History: He denies smoking, alcohol, or recreational drug use. Review of Systems: Ten-point review of systems other than HPI, he did have some lower back pain, which is also resolved at this point. Physical Examination: Vital Signs: At the time of my examination, his blood pressure is 100/64, pulse 77, respiratory rate 18, temperature 98.1, SpO2 of 98% on room air. General: He is awake, alert, oriented. Psychiatric: He is appropriate and conversive. HEENT: He is normocephalic. Sclerae anicteric. Mucous membranes are moist. Oropharynx is clear. Neck: Supple without JVD. Chest: Normal expansion and excursion. Cardiovascular: Regular rate and rhythm. Pulmonary: Clear to auscultation bilaterally. Abdomen: Soft, nontender, nondistended. No rebound. No guarding. No focal peritonitis. Completel y benign abdominal exam. Extremities: No clubbing, cyanosis, or edema. Skin: Warm and dry. Laboratory Data: Laboratory exam revealed white blood count of 3.2, hemoglobin is 11.4, hematocrit 3 3.9, platelet count is 263, neutrophils are 52%. Sodium 136, potassium 4.1, chloride 104, carbon gabriela xide 30, BUN 17, creatinine 0.99, glucose is 95, lactic acid 0.8, AST 20, ALT 25, alkaline phosphatas e is 454. CRP was 4.35. Lipase is 45. UA was negative down the line. He had imaging performed, wh ich included a CT of the abdomen and pelvis, officially read as there is swirling appearance of the m esentery vessels in the anterior abdomen concerning for developing volvulus. There are multiple mild ly fluid-filled distended small bowel loops. There is diffuse mild mucosal thickening of the small b owel colon suspicious for enterocolitis. There are mild luminal narrowing of the small bowel near th e swirling of mesenteric vessels. The official impression of this also included prominent gastric mu cosal folds of the stomach can be due to underdistention versus hypertrophy or gastritis. Mild mesen teric pelvic and inguinal lymphadenopathy. Circumferential wall thickening of the urinary bladder mi ght be secondary to bladder outlet obstruction by prostatomegaly, probable trace right scrotal hydroc kirsten. Assessment And Plan: 1.This is a 54-year-old man, who presents with signs and symptoms of enterocolitis with a possible v olvulus component given the appearance of his mesenteric vessels. 2.I personally reviewed his CT scan and find there is an appearance of mesenteric swirling. However , given the patient had no significant medical history of any gastrointestinal surgical procedures an d he is currently asymptomatic with normal lactic acid, I have discussed that the patient should be o bserved and we will proceed with medical non-operative management with serial abdominal exams and rec heck labs as needed. If there is any indication that the patient has non-reassuring signs or symptom s of findings, we will consider ongoing workup, possible surgical intervention for possible mesenteri c ischemic event. 3.However, given the patient's current clinical picture, I think it is reasonable to start clear liq uid diet. As the patient is continuing to have bowel movements, he is completely asymptomatic from w hen he presented to the ER without any significant medication at this point. I will continue to perf orm serial abdominal exams and continue medical management per primary team. I have recommended the patient to have brim shaper followup as an outpatient as well as Infectious Disease specialist followup to ensure that his other medical issues are being managed. In addition, he needs to see ur ologist, which I have discussed for his possible urinary issues. The patient states he has already h ad conversations with the urologist, Infectious Disease doctor, and brim shaper, one is in [place], the other is in [facility], and he states he has a urologist to manage his prostatomegaly as well. Therefore, he states he will follow up with these regarding the specialist. The patient displayed un derstanding of the above stated plan and agreed to proceed as indicated. Thank you for this interesting consult. OLINDA/EVELYN Voice ID: [id number] Report ID: [id number]
[2024-10-15] MEDS: TENOFOVIR PO SCH (19:55)
[2024-10-15] MEDS: RALTEGRAVIR 400 MG PO SCH (19:55)
[2024-10-15] MEDS: EMTRICITABINE PO SCH (19:55)
[2024-10-16 07:29] LABS: Anion Gap 6.9 mEq/L (5.0-15.0); Potassium 3.9 mEq/L (3.5-5.1)
[2024-10-16] MEDS: POTASSIUM CL SA 10 MEQ TAB PO ONE (09:06)
--- NOTE | 2024-10-16 10:11 | P.DS ---
Admission Date: 10/14/24 Discharge Date: 10/16/24 Disposition: ROUTINE DISCHARGE Discharge Condition: GOOD Reason for Admission: partial SBO Brief History of Present Illness: Diagnosis Acute partial SBO suspect developing volulus Acute enterocolitis/gastritis Abdominal pain with vomiting Lymphadenopathy Prostatomegaly Right scrotal hydrocele, Trace Neutropenia Leukopenia Anemia History of HIV HPI 10/14/2024 Emmanuel Adam is a 54 year old male with Pmhx HIV AIDs who presents to the ED with chief complaint of decreased appetite and vomiting. He was recently seen in the ED on 10/02 and diagnosed with HIV AIDs being prescribed Truvada 200-300 mg Oral tablet, acetaminophen-codeine 300-60 mg, Oral tablet raltegravir 400 mg, Oral tablet Fluconazole, 200 mg Oral tablet, and ondansetron 8 mg Oral Tablet. Laboratory evaluation significant for WBC 3.2, Absolute Neutrophils 1.7, H/H . CT abd/pelvis reports "Stomach: Small hiatal hernia. Prominent gastric mucosal folds of the stomach could be due to underdistention versus hypertrophy or gastritis BOWEL: There is swirling appearance of mesenteric vessels in the anterior abdomen (series [id number] image [id number]), concerning for developing volvulus. There are multiple mildly fluid distended small bowel loops. There is diffuse mild mucosal thickening of small bowel and colon, suspicious for enterocolitis. There are mild luminal narrowing of small bowel near the swirling mesenteric vessels. MESENTERY/PERITONEUM: Multiple prominent mesenteric lymph nodes are seen in bilateral abdomen RETROPERITONEUM: No adenopathy. Multiple enlarged inguinal lymph nodes are present. Small lymph nodes are also seen along bilateral iliac chain. URINARY BLADDER: Circumferential wall thickening of urinary bladder may be secon eliza to bladder outlet obstruction by prostatomegaly. ABDOMINAL/PELVIC WALL: There is a small calcification in the right scrotal sac. Probable trace right scrotal hydrocele. Chest xray reports " No acute disease." Emmanuel will be admitted to hospitalist service for further evaluation and treatment of Acute partial small bowel obstruction suspect developing volvulus. Hospital Course: Emmanuel Adam is a pleasant 54-year-old male with a past medical history significant for HIV who was admitted to the [facility] on 10/14/2024 for decreased appetite and vomiting. Emmanuel presented to the ED with chief complaint of decreased appetite and vomiting. He was diagnosed with HIV 19 years ago and just now started on his medications as he was out of his medications for several months. While in the ED CT scan and revealed "partial small bowel obstruction suspect developing volvulus". He described pain to his back and his abdomen causing vomiting. KUB on 10/15 reports "small bowel caliber prominence reflecting ileus or early obstruction". He tolerated mineral oil resulting with a BM and reports p.o. diet does not cause pain or nausea. Abdominal pain has resolved. Blood pressures remained low, he is cachectic and was evaluated by the dietitian with recommendations provided. He is ambulating independently, urinating without difficulty, denies CP, SOB, abdominal pain, and ready for discharge. On 10/16/2024, Emmanuel was seen on morning rounds and deemed medically stable for discharge home with family support. Emmanuel was discharged with instructions to schedule follow-up appointments with PCP, infectious disease, gastroenterology, and urology. Midodrine prescribed Physical Exam General: AAOx3, NAD HEENT: Atraumatic, Normocephalic, PERRLA Neck: Supple, 2+ carotid pulse no bruit Respiratory: Clear to auscultation bilaterally, Normal air movement, on RA Cardiovascular: Normal pulses, normal sinus rhythm, Normal S1 S2 Capillary refill: <2 Seconds Gastrointestinal: Normal active bowel sounds, Soft and benign on palpation, ND/NT Musculoskeletal: No clubbing Integumentary: No rashes Neurological: Normal speech, Normal tone Vital Signs/Physical Exam: Temp Pulse Resp BP Pulse Ox 98.1 F 77 16 100/58 L 99 10/16/24 04:00 10/16/24 04:00 10/16/24 04:00 10/16/24 04:00 10/16/24 04:00 Laboratory Data at Discharge: WBC 2.90 thou/uL (4.3-10.9) L 10/15/24 07:40 Hgb 10.1 g/dL (13.6-17.9) L 10/15/24 07:40 Hct 31.2 % (39.6-49.0) L 10/15/24 07:40 Plt Count 212 thou/uL (152-406) 10/15/24 07:40 Sodium 139 mEq/L (136-145) 10/16/24 06:45 Potassium 3.9 mEq/L (3.5-5.1) 10/16/24 06:45 BUN 10 mg/dL (7-18) 10/16/24 06:45 Creatinine 1.04 mg/dL (0.70-1.30) 10/16/24 06:45 Glucose 92 mg/dL (74-106) 10/16/24 06:45 Phosphorus 3.5 mg/dL (2.5-4.9) 10/15/24 07:40 Magnesium 2.3 mg/dL (1.6-2.4) 10/15/24 07:40 Total Bilirubin 0.3 mg/dL (0.2-1.0) 10/14/24 01:51 AST 20 U/L (15-37) 10/14/24 01:51 ALT 25 U/L (16-61) 10/14/24 01:51 Alkaline Phosphatase 454 U/L (45-117) H 10/14/24 01:51 Lipase 45 U/L (13-75) 10/14/24 01:51 Home Medications: Emtricitabine/Tenofovir (Tdf) [Emtricitabine-Tenofv 200-300Mg] 1 tab PO DAILY 10/14/24 Fluconazole 1 tab PO DAILY 10/14/24 Raltegravir Potassium [Isentress] 1 tab PO BID 10/14/24 Midodrine HCl 5 mg PO BID PRN 30 Days #30 tab 10/16/24 New Medications: Midodrine HCl 5 mg PO BID PRN 30 Days #30 tab PRN Reason: Blood pressure < 100 Physician Discharge Instructions: 1. Please call and schedule a follow-up appointment with your PCP in 3-5 days - Please follow-up with your PCP for medication refills/adjustments 2. Please call and schedule a follow-up appointment with Gastroenterology in 2 weeks -need for a colonoscopy 3. Please call and schedule a follow up appointment with Urology in 2 weeks -Management of prostamegaly 4. Please call and schedule follow-up appointment with infectious disease in 2 weeks -Management for HIV 5. Continue soft GI diet diet 6. No activity restrictions 7. Return to the ED if symptoms worsen Nutritional support 1.) Recommend a fiber restricted diet 2.) Start Ensure HP (237ml) PO BID 3.) Small, frequent meals and adequate fluid intake New medication Midodrine 5 mg twice daily as needed -please check your blood pressure twice daily, if the top number is less than 100 please take one tabe of midodrine 5 mg. Diet: Soft GI Activity: Ad sam Followup: NONE,NONE [Primary Care Provider] -
[2024-10-16 14:23] VITALS: BP 93/60; TEMP 98.1
== END 2024-10-16 13:40 | disposition home or self-care (01) | DRG 388 ==
LOC: ER 01:19 → ERHOLD 07:57 → 4TH 08:43
PROVIDERS: ADMIT Internal Medicine; ATTEND Internal Medicine
DX: K56.690 Other partial intestinal obstruction (principal); E43 Unspecified severe protein-calorie malnutrition; B20 Human immunodeficiency virus [HIV] disease; Z68.1 Body mass index [BMI] 19.9 or less, adult; R64 Cachexia; K56.2 Volvulus; K29.00 Acute gastritis without bleeding; D64.9 Anemia, unspecified; N43.2 Other hydrocele; N43.3 Hydrocele, unspecified; D70.9 Neutropenia, unspecified; K52.9 Noninfective gastroenteritis and colitis, unspecified; R59.1 Generalized enlarged lymph nodes; Z88.0 Allergy status to penicillin; Z79.899 Other long term (current) drug therapy
CPT/HCPCS: 36415; 71046; 74018; 74177; 80048; 80053; 81001; 83605; 83690; 83735; 84100; 84439; 84443; 85025; 86140; 96361; 96365; 96375; 99285; J1644; J2405; J2470; J2765; J3490; J7030; J7799; P9047; Q9967

== ENCOUNTER 2024-12-12 06:14 | Emergency (ER) | payer BC ==
--- OUTSIDE RECORDS SUMMARY | 2024-12-12 06:16 | XMS REPORT | Continuity of Care Document ---
Author Name Unknown Address [address] [place] [address] [facility] thconnect Address [address] [place] [address] Care Team Providers Care Manager Environmental Name Role Phone Pcp, Patient Does Not Have A Primary Care Physic florence SADIA PARKS Attending Clinician Unavailab Jaime Thakur DO Attending Clinician + Ramón Bhardwaj MA Attending Clinician UnavailAbhilash Loera RN Attending Clinician Unavaila ble [facility] Attending Clinician Unavailable Mohit Goyal MD Attending Clinician [phone] MOHIT GOYAL Attending Clinician Unavaila MOHIT Ang Attending Clinician Unavaila dc Pob, [facility] Main Attending Clinician Baldev Busch MD Attending Clinician [phone] BALDEV NICKERSON Attending Clinician UnavailCLARA Barroso Attending Clinician Unavailable DR ELSIE BRAVO Attending Clinician Unavailab KATHERINE Lundberg Attending Clinician Unavailable Katherine Greenwood MD Attending Clinician [phone] Doctor Unassigned, [place] Attending Clinician U navailable Ford Attending Clinician Unavailable Herminio Attending Clinician UnavailMARION Bridges MD(DO NOT USE) Attending Clinic florence Unavailable NANO PEREZ Attending Clinician Unavailable AGUSTÍN VELÁZQUEZ Attending Clinician Unavailable SUE FAULKNER Attending Clinician Unavailable KAMARI DONOVAN Attending Clinician Unavailable EDER SUNSHINE Attending Clinician Unavailab DR ELSIE Lopez Admitting Clinician Unavailab Aden Admitting Clinician Unavailable Herminio Admitting Clinician Unavailtorey torres Payers Payer Name Policy Type Policy Number Effective Date Expirati on Date Source 0450 [id number] 1959 00:00:00 [place] [id number] AETNA (POS) [id number] 2013 00:00:00 Problems Condition Name Condition Details Condition Category Status Onset Date Resolution Date Last Treatment Date Treating Clinician Comments Source No known active problems No known active problems Disease [facility] Allergies, Adverse Reactions, Alerts Allergy Name Allergy Type Status Severity Reaction(s) Onset Date Inactive Date Treating Clinician Comments Source Penicill ins DA Active Unknown 02-15 00:00: 00 [facility] PENICILL IN DRUG INGREDI Active High Hives 2021-11 00:00: 00 [facility] Penicill in Propensi ty to adverse reaction s Active Hives 2021-11 00:00: 00 [facility] NO KNOWN ALLERGIE S Drug Class Active [facility] Social History Social Habit Start Date Stop Date Quantity Comments Source [facility] Tobacco use and exposure 2024-10-31 00:00:00 2024-10-31 00:00:00 Smokeless tobacco non-user [facility] History of Social function 2024-10-31 00:00:00 2024-10-31 00:00:00 [facility] Exposure to SARS-CoV-2 (event) 2022-10-19 00:00:00 2022-10-29 13:20:00 Not sure [facility] Sex assigned at 1970 00:00:00 1970 00:00:00 [facility] Smoking Status Start Date Stop Date Source Tobacco smoking consumption unknown [facility] Never smoked tobacco [facility] Medications Ordered Medication Name Filled Medication Name Start Date Stop Date Current Medication? Ordering Clinician Indication Dosage Frequency Signature (SIG) Comments Components Source ondansetron 8 mg tablet 2023-11 13:42: 47 Yes 8mg Take 1 tablet by mouth every 8 (eight) hours as needed. [facility] fluconazole 200 mg tablet 2023-11 13:42: 47 Yes 200mg Take 1 tablet by mouth in the morning. [facility] emtricitabi ne-tenofovi r, TDF, 200-300 mg tablet 2023-11 13:42: 47 Yes 1{tbl} Take 1 tablet by mouth in the morning. [facility] raltegravir (ISENTRESS) 400 mg tablet 2023-11 13:42: 47 Yes 400mg Take 1 tablet by mouth in the morning and 1 tablet in the evening. [facility] midodrine 5 mg tablet 2023-11 13:42: 47 Yes 5mg Take 1 tablet by mouth. [facility] ibuprofen 600 mg tablet 2023-11 13:42: 47 Yes 600mg Take 1 tablet by mouth every 6 (six) hours as needed. [facility] bictegrav-e mtricit-ten ofov ala (BIKTARVY) 50-200-25 mg tablet 2023-11 00:00: 00 10-31 00:00 :00 Yes [id number] 1{tbl} Take 1 tablet by mouth in the morning. [facility] triamcinolo ne acetonide (KENALOG) injection 20 mg 2021-11 22:00: 00 10-29 21:11 :00 No [id number] 9107 20mg [facility] Vital Signs Vital Name Observation Time Observation Value Comments S eddy Diastolic blood pressure 2024-11-14 20:55:00 67 mm[Hg] [facility] Heart rate 2024-11-14 20:55:00 98 /min [facility] Body temperature 2024-11-14 20:55:00 36.5 Sue [facility] Body height 2024-11-14 20:55:00 167.6 cm [facility] Body weight 2024-11-14 20:55:00 55.339 kg [facility] BMI 2024-11-14 20:55:00 19.69 kg/m2 [facility] Oxygen saturation in Arterial blood by Pulse oximetry 2024-11-14 20:55:00 98 /min [facility] Systolic blood pressure 2024-11-14 20:55:00 109 mm[Hg] [facility] Systolic blood pressure 2024-10-31 19:37:00 108 mm[Hg] [facility] Diastolic blood pressure 2024-10-31 19:37:00 70 mm[Hg] [facility] Heart rate 2024-10-31 19:37:00 103 /min [facility] Body temperature 2024-10-31 19:37:00 36.11 Sue [facility] Respiratory rate 2024-10-31 19:37:00 18 /min [facility] Body height 2024-10-31 19:37:00 167.6 cm [facility] Body weight 2024-10-31 19:37:00 54.568 kg [facility] BMI 2024-10-31 19:37:00 19.42 kg/m2 [facility] Oxygen saturation in Arterial blood by Pulse oximetry 2024-10-31 19:37:00 97 /min [facility] Height 2023-02-15 14:56:00 165.1 CM Weight 2023-02-15 14:56:00 70.3 KG Systolic blood pressure 2022-10-29 19:35:00 108 mm[Hg] [facility] Diastolic blood pressure 2022-10-29 19:35:00 69 mm[Hg] [facility] Heart rate 2022-10-29 19:35:00 92 /min [facility] Body temperature 2022-10-29 19:35:00 36.17 Sue [facility] Body height 2022-10-29 19:35:00 167.6 cm [facility] Body weight 2022-10-29 19:35:00 67.087 kg [facility] BMI 2022-10-29 19:35:00 23.87 kg/m2 [facility] Procedures Procedure Date / Time Performed Performing Clinicia n Source CONSENT/REFUSAL FOR DIAGNOSIS AND TREATMENT 2022-10-29 19:21:41 Doctor Unassigned, [place] [facility] Encounters Start Date/Time End Date/Time Encounter Type Admission Type Attending Clinicians Care Facility Care Department Encounter ID Source 2024-12-11 21:38:00 2024-12-12 00:05:00 Emergency ER SADIA PARKS [facility] [id number] [facility] 2024-12-06 00:00:00 2024-12-06 13:58:[address] [facility] 1.2.840.114 350.1.13.10 4.2.7.2.686 [id number] [facility] 2024-11-04 00:00:00 2024-11-21 14:02:17 Case Management Black, Ramón L Black, Ramón L [facility] ([facility]) 1.2.840.114 350.1.13.10 4.2.7.2.686 [id number] [facility] 2024-10-31 00:00:00 2024-11-21 14:01:49 Case Management Black, Ramón L Black, Ramón L [facility] ([facility]) 1.2.840.114 350.1.13.10 4.2.7.2.686 [id number] [facility] 2024-11-14 00:00:00 2024-11-17 10:28:13 Case Management Abhilash Fuentes Jimmie L [facility] ([facility]) 1.2.840.114 350.1.13.10 4.2.7.2.686 [id number] [facility] 2024-11-14 16:15:00 2024-11-14 16:30:00 Pipe Fitter Soft Copper Visit [facility] Mohit Goyal [facility] ([facility]) 1.2.840.114 350.1.13.10 4.2.7.2.686 [id number] [facility] 2024-11-14 14:30:00 2024-11-14 15:00:00 Office Visit Jaime Hernández Juan Carlos [facility] ([facility]) 1.2.840.114 350.1.13.10 4.2.7.2.686 [id number] [facility] 2024-11-14 14:30:00 2024-11-14 14:30:00 Outpatient MOHIT DAILY JUAN [facility] [id number] [facility] 2024-11-11 00:00:00 2024-11-11 14:17:40 Case Management Abhilash Fuentes Jimmie L [facility] ([facility]) 1.2.840.114 350.1.13.10 4.2.7.2.686 [id number] [facility] 2024-11-01 10:00:00 2024-11-01 10:15:00 Pipe Fitter Soft Copper Visit Meggan, Octavio Lab Main Baldev Nickerson [facility] 1.2.840.114 350.1.13.10 4.2.7.2.686 [id number] [facility] 2024-11-01 10:00:00 2024-11-01 10:00:00 Outpatient BALDEV MURPHY [facility] [id number] [facility] 2024-10-31 14:00:00 2024-10-31 15:00:00 Office Visit Jaime eHrnández Juan Carlos [facility] ([facility]) 1.2.840.114 350.1.13.10 4.2.7.2.686 [id number] [facility] 2024-10-31 14:00:00 2024-10-31 14:00:00 Outpatient MOHIT DAILY J[facility] [id number] [facility] 2024-10-31 00:00:00 2024-10-31 13:45:07 Case Management Abhilash Fuentes Jimmie L [facility] ([facility] 1..840.114 350.1.13.10 4.2.7.2.686 [id number] [facility] 2023-07-25 19:51:00 2023-07-25 22:00:00 Emergency ER CLARA CANO [facility] [id number] [facility] 2023-02-15 14:40:00 2023-02-15 16:24:00 Outpatient ELSIE RUSSO [facility] [id number] [facility] 2022-12-24 13:50:00 2022-12-24 13:50:00 Outpatient KATHERINE AUSTIN [facility] [id number] [facility] 2022-10-29 13:30:00 2022-10-29 15:04:44 Office Visit Katherine Greenwood [facility] 1..840.114 350.1.13.10 4.2.7.2.686 [id number] [facility] 2022-10-29 13:30:00 2022-10-29 15:04:44 Outpatient R DUGLASLACE, KATHERINE [facility] [id number] [facility] 2022-10-29 00:00:00 2022-10-29 00:00:00 Orders Only Doctor Unassigned, [place] [facility] 1.2.840.114 350.1.13.10 4.2.7.2.686 [id number] [facility] 2022-10-09 00:00:00 2022-10-09 00:00:00 Outpatient Ford [facility] [id number] [facility] 2021-12-26 09:54:00 2021-12-26 09:54:00 [facility]patient [facility] [id number] [facility] 2021-06-18 03:11:00 2021-06-18 06:42:00 Emergency ER MARION RIVERA [facility] [id number] [facility] 2018-12-03 12:18:00 2018-12-03 13:34:00 Emergency ER OWEris TOKS [facility] [id number] [facility] 2018-04-06 22:20:00 2018-04-07 00:04:00 Emergency ER OWO, TOKS [facility] [id number] [facility] 2016-10-06 01:46:00 2016-10-06 03:58:00 Emergency ER BRUNA VELÁZQUEZG [facility] [id number] [facility] 2015-10-19 16:28:00 2015-10-19 19:01:00 Emergency ER SUE FAULKNER [facility] [id number] [facility] 2015-01-04 12:51:00 2015-01-04 15:48:00 Emergency ER DONOVANKAMARI [facility] [id number] [facility] 2014-12-13 16:13:00 2014-12-13 16:50:00 Emergency ER EDER SUNSHINE [facility] [id number] [facility] 2014-08-29 18:15:00 2014-08-29 18:46:00 Emergency ER EDER SUNSHINE [facility] [id number] [facility]
[2024-12-12 06:46] LABS: Absolute Basophils 0.1 K/uL (0-0.5); Absolute Eosinophils 0.6 K/uL (0-0.5); Absolute Lymphocytes (CBC) 2.2 K/uL (0.7-4.9); Absolute Monocytes 0.9 K/uL (0.1-1.3); Absolute Neutrophil 2.8 K/uL (1.8-8.0); Basophils % 1.1 % (0-1.3); Eosinophils % 9.2 % (0-4.4); Hematocrit 39.1 % (39.6-49.0); Hemoglobin 12.9 g/dL (13.6-17.9); Lymphocytes % 33.6 % (15.3-44.8); MCH 29.7 pg (27.0-35.0); MCHC 33.1 g/dL (32.0-36.0); MCV 89.8 fL (80-100); MPV 6.7 fL (7.6-11.3); Monocytes % 13.4 % (3.3-12.3); Neutrophils % 42.7 % (41.7-73.7); Platelets 228 thou/uL (152-406); RBC Red Blood Cell Count 4.35 M/uL (4.33-5.43); Red Cell Distribution Width 15.8 % (12.1-15.2)
[2024-12-12 07:10] LABS: Troponin High Sensitivity 4.1 pg/mL (<58.9)
--- NOTE | 2024-12-12 07:31 | EDPHYS ---
Physician Documentation [facility] Name: Emmanuel Adam Age: 54 yrs Sex: Male : 1970 Arrival Date: 12/12/2024 Time: 06:14 Bed 16 Private MD: ED Physician Elroy Bonds HPI: 12/12 06:35 This 54 yrs old Male presents to ER via Ambulatory with complaints of ec2 PAIN/NUMBNESS HANDS-BILATERAL. 06:35 Patient arrives today for evaluation of bilateral paresthesias of the upper ec2 extremities. Denies any falls injuries or trauma. Was recently seen at [place], had a negative CT scan of the head and was told he had bilateral carpal tunnel. Denies any trauma or injuries. Denies any fevers or chills or nausea or vomiting.. Historical: - Allergies: 06:28 PENICILLINS; br2 - PMHx: 06:28 HIV positive; Hypertensive disorder; br2 - PSHx: 06:28 dilation of esophagus; br2 - Immunization history:: Adult Immunizations up to date. - Infectious Disease History:: HIV. - Social history:: Smoking status: Patient denies any tobacco usage or history of. Patient/guardian denies using alcohol, street drugs. ROS: 06:35 Constitutional: as per hpi ec2 Exam: 06:35 Constitutional: GEN: NAD Head: atraumatic Eyes: EOMI Ears: External ears are ec2 normal. CV: regular rate LUNGS: no respiratory distress ABD: non-distended SKIN: no evidence of rashes MSK: no evidence of trauma. Neuro: Cranial nerves II through XII intact, strength intact all 4 extremities. Vital Signs: 06:26 BP 132 / 97; Pulse 75; Resp 18; Temp 97.7(TE); Pulse Ox 99% on R/A; Weight 63.5 kg; br2 Height 5 ft. 6 in. ; Pain 7/10; 06:50 BP 110 / 75; Pulse 71; Resp 18 S; Pulse Ox 96% on R/A; br2 07:39 BP 110 / 83; Pulse 71; Resp 18; Pulse Ox 96% on R/A; ld1 06:26 Body Mass Index 22.60 (63.50 kg, 167.64 cm) br2 06:26 Pain Scale: Adult br2 MDM: 06:18 Medical Screening Exam initiated ec2 06:35 Data reviewed: vital signs, nurses notes. ED course: Patient arrives today for ec2 evaluation of bilateral upper extremity paresthesias. Examination is unrevealing with an intact neurologic exam. Will obtain lab work to evaluate for electrolyte disturbances. EKG obtained, independently reviewed and interpreted by me, shows normal sinus rhythm, rate of 63, no acute ST segment elevations, intervals are nonactionable. Additionally patient has HIV, is on Biktarvy.. 06:57 Transition of care: After a detail discussion of the patient's case, care is ec2 transferred to Elroy Bonds DO. ED course: Patient signed out to oncoming physician with pending lab work.. 07:00 Transition of care: Care assumed from Romeo Nunez MD. ED course: 54-year-old male ms3 presenting for upper extremity paresthesias. Patient currently pending labs. Patient to be discharged after labs.. 07:28 Differential Diagnosis Electrolyte abnormality versus peripheral neuropathy versus ms3 adverse reaction from medication. I considered the following discharge prescriptions or medication management in the emergency department Medications were administered in the Emergency Department. See MAR. Counseling: I had a detailed discussion with the patient and/or guardian regarding the historical points, exam findings, and any diagnostic results supporting the discharge/admit diagnosis, lab results, the need for outpatient follow up, to return to the emergency department if symptoms worsen or persist or if there are any questions or concerns that arise at home. Special discussion: I discussed with the patient/guardian in detail that at this point there is no indication for admission to the hospital. It is understood, however, that if the symptoms persist or worsen the patient needs to return immediately for re-evaluation. ED course: Discussed labs with patient. Patient labs significant for mild anemia and mild hypocalcemia. Patient given calcium carbonate in the emergency department. Patient to follow-up with her primary care physician as discussed. All questions were answered. Return precautions discussed include worsening symptoms, or any other concerns. On reevaluation patient is alert and oriented x 4, no apparent distress, nontoxic-appearing, speaking full sentences.. 12/12 06:19 Order name: Basic Metabolic Panel; Complete Time: 07:16 ec2 12/12 06:19 Order name: CBC with Diff ec2 12/12 06:19 Order name: Troponin HS; Complete Time: 07:16 ec2 12/12 06:55 Order name: CBC Smear Scan EDMS 12/12 06:19 Order name: EKG; Complete Time: 06:19 ec2 12/12 06:19 Order name: Cardiac monitoring; Complete Time: 06:37 ec2 12/12 06:19 Order name: EKG - Nurse/Tech; Complete Time: 06:37 ec2 12/12 06:19 Order name: IV Saline Lock; Complete Time: 06:37 ec2 12/12 06:19 Order name: Labs collected and sent; Complete Time: 06:40 ec2 12/12 06:19 Order name: O2 Per Protocol; Complete Time: 06:37 ec2 12/12 06:19 Order name: O2 Sat Monitoring; Complete Time: 06:37 ec2 Administered Medications: 07:47 Not Given (Not in pyxis): calcium rbwgrnyts017 mg 2 tablet PO once ld1 Disposition Summary: 12/12/24 07:30 Discharge Ordered Notes: Location: Home ms3 Condition: Stable ms3 Diagnosis - Paresthesia of skin ms3 - Hypocalcemia ms3 - Anemia, unspecified ms3 Followup: ec2 - With: Private Physician - When: - Reason: Re-evaluation by your physician Discharge Instructions: - Anemia ms3 - Hypocalcemia, Adult ms3 - Discharge Summary Sheet ec2 - Peripheral Neuropathy ec2 - Paresthesia, [id number] ec2 Forms: - Medication Reconciliation Form ms3 - Antibiotic Education ms3 - Prescription Opioid Use ms3 - Patient Portal Instructions ms3 - Leadership Thank You Letter ms3 Prescriptions: - gabapentin 300 mg Oral capsule - take 1 capsule ORAL route every 12 hours; 30 capsule; Refills: 0, Product ec2 Selection Permitted Signatures: Dispatcher [employer] EDElroy Myles DO DO ms3 Romeo Nunez MD MD ec2 Tonia Rios RN RN br2 Natalie Bonds RN ld1
--- NOTE | 2024-12-12 07:31 | ER ---
Nurse's Notes [facility] Name: Emmanuel Adam Age: 54 yrs Sex: Male : 1970 Arrival Date: 12/12/2024 Time: 06:14 Bed 16 Private MD: Diagnosis: Paresthesia of skin;Hypocalcemia;Anemia, unspecified Presentation: 12/12 06:26 Chief complaint: Patient states: NUMBNESS TO BILATERAL HANDS SINCE YESTERDAY. PT WAS br2 SEEN AT [facility] ER IN [place] AND DX WITH CARPAL TUNNEL. PT STATES HE CAME HERE FOR A SECOND OPINION. Coronavirus screen: Client denies travel out of the [place] in the last 14 days. Ebola Screen: Patient denies exposure to infectious person. Initial Sepsis Screen: Does the patient meet any 2 criteria? No. Patient's initial sepsis screen is negative. Does the patient have a suspected source of infection? No. Patient's initial sepsis screen is negative. Risk Assessment: Do you want to hurt yourself or someone else? Patient reports no desire to harm self or others. Onset of symptoms was December 11, 2023. 06:26 Method Of Arrival: Ambulatory br2 06:26 Acuity: KATY 4 br2 Historical: - Allergies: 06:28 PENICILLINS; br2 - PMHx: 06:28 HIV positive; Hypertensive disorder; br2 - PSHx: 06:28 dilation of esophagus; br2 - Immunization history:: Adult Immunizations up to date. - Infectious Disease History:: HIV. - Social history:: Smoking status: Patient denies any tobacco usage or history of. Patient/guardian denies using alcohol, street drugs. Screenin:26 [facility] ED Fall Risk Assessment (Adult) History of falling in the last 3 months, br2 including since admission No falls in past 3 months (0 pts) Confusion or Disorientation No (0 pts) Intoxicated or Sedated No (0 pts) Impaired Gait No (0 pts) Mobility Assist Device Used No (0 pt) Altered Elimination No (0 pt) Score/Fall Risk Level 0 - 2 = Low Risk Oriented to surroundings. Abuse screen: Denies threats or abuse. Denies injuries from another. Nutritional screening: No deficits noted. Tuberculosis screening: No symptoms or risk factors identified. Assessment: 06:26 Reassessment: SEE TRIAGE ASSESSMENT. General: Appears in no apparent distress. br2 comfortable, Behavior is calm, cooperative. Pain: Complains of pain in right hand and left hand Pain does not radiate. Pain currently is 7 out of 10 on a pain scale. Neuro: Reports numbness in right hand and left hand. Cardiovascular: Capillary refill < 3 seconds. Respiratory: Airway is patent Respiratory effort is even, unlabored, Respiratory pattern is regular, symmetrical. GI: No signs and/or symptoms were reported involving the gastrointestinal system. : No signs and/or symptoms were reported regarding the genitourinary system. EENT: No signs and/or symptoms were reported regarding the EENT system. Derm: No signs and/or symptoms reported regarding the dermatologic system. Musculoskeletal: Capillary refill < 3 seconds, Range of motion: intact in all extremities. Vital Signs: 06:26 BP 132 / 97; Pulse 75; Resp 18; Temp 97.7(TE); Pulse Ox 99% on R/A; Weight 63.5 kg; br2 Height 5 ft. 6 in. ; Pain 7/10; 06:50 BP 110 / 75; Pulse 71; Resp 18 S; Pulse Ox 96% on R/A; br2 07:39 BP 110 / 83; Pulse 71; Resp 18; Pulse Ox 96% on R/A; ld1 06:26 Body Mass Index 22.60 (63.50 kg, 167.64 cm) br2 06:26 Pain Scale: Adult br2 ED Course: 06:16 Patient arrived in ED. [id number] 06:18 Romeo Nunez MD is Attending Physician. ec2 06:26 Tonia Rois, RN is Primary Nurse. br2 06:26 Patient has correct armband on for positive identification. Bed in low position. Call br2 light in reach. Side rails up X 1. Provided Education on: PLAN OF CARE. 06:28 Triage completed. br2 06:40 Basic Metabolic Panel Sent. br2 06:40 CBC with Diff Sent. br2 06:40 Troponin HS Sent. br2 06:41 Inserted saline lock: 22 gauge in left forearm, using aseptic technique. Blood br2 collected. Flushed with 10 mL NS. 06:41 EKG done, by ED staff, reviewed by Romeo Nunez MD. oe 06:51 Report given to SHAKA. Client placed on continuous cardiac and pulse oximetry br2 monitoring. NIBP monitoring applied. child monitor on. 07:01 Attending Physician role handed off by Romeo Nunez MD ec2 07:01 Elroy Bonds DO is Attending Physician. ec2 07:47 No provider procedures requiring assistance completed. IV discontinued, intact, ld1 bleeding controlled, No redness/swelling at site. 07:48 Arm band placed on right wrist. ld1 Administered Medications: 07:47 Not Given (Not in pyxis): calcium ubattvtxu216 mg 2 tablet PO once ld1 Medication: 07:48 VIS not applicable for this client. ld1 Outcome: 07:30 Discharge ordered by MD. ms3 07:48 Discharged to home ambulatory, ld1 07:48 Condition: stable 07:48 Discharge instructions given to patient, Instructed on discharge instructions, follow up and referral plans. Demonstrated understanding of instructions, follow-up care, medications, Prescriptions given X 1, 07:48 Patient left the ED. ld1 Signatures: Dannie Rivas Marcus, DO DO ms3 Shaka Bonds, RN RN ld1 Alessandra Velasquez jj6 Romeo Nunez MD MD ec2 Tonia Rios RN RN br2
[2024-12-12 07:49] LABS: Blood Morphology Comment NOT SEEN (NOT SEEN); Platelet Estimate ADEQ; White Blood Cell Scan OK (OK)
[2024-12-13 16:35] VITALS: BP 110/83; TEMP 97.7; O2SAT 96
--- NOTE | 2024-12-15 12:08 | EKG ---
Test Date: 2024-12-12 Test Time: 06:28:59 Portfolio Accountant: MATTHIAS MEASUREMENT RESULTS: Intervals: Rate: 63 IA: 170 QRSD: 96 QT: 384 QTc: 392 [place]: P: 27 IA: 170 QRS: 109 T: 48 INTERPRETIVE STATEMENTS: Normal sinus rhythm Normal ECG Compared to ECG 11/04/2023 15:05:54 Right-axis deviation no longer present Electronically Signed On 12-15-24 12:07:21 TRAIL CONSTRUCTION WORKER by Aldo Wasserman
== END 2024-12-12 07:48 | disposition home or self-care (01) ==
LOC: ER 06:14
DX: R20.2 Paresthesia of skin (principal); E83.51 Hypocalcemia; D64.9 Anemia, unspecified; Z21 Asymptomatic human immunodeficiency virus [HIV] infection status
CPT/HCPCS: 36415; 80048; 84484; 85025; 93005; 99284